=== PATIENT | female | born 1940 | race Caucasian/White ===

== ENCOUNTER → 2016-06-10 | Outpatient (CLI) | payer OTHER, BC ==
[~2016-06-10] MED LIST: ACETAMINOPHEN-1 EAC1 PO; ADVIL200 M3 PO; ALLEGRA ALLERG180 MG PO; AUGMENTIN 875-1 EACH PO; CALCIUM 500 +1 EAC5 PO; DYMISTA NASAL S23 GM NS; HYDROCODON-ACE1 EAC7 PO; KEFLEX500 MG PO; MEDROLDOSEPACK PO; MIRALAX17 GM PO; MULTIVITAMINS1 EAC7 PO; NAPROSYN375 MG PO; TESSALON PERLE100 MG PO; VERAPAMIL ER180 M1 PO; VITAMIN C500 M1 PO; ZINC50 M1 PO
== END ==
LOC: RAD 11:06
DX: R05 Cough (principal)

== ENCOUNTER → 2016-10-06 | Outpatient (CLI) | payer OTHER, BC | LOC: RAD 02:14 | DX: Z12.31 Encounter for screening mammogram for malignant neoplasm of breast (principal) ==

== ENCOUNTER → 2017-02-04 | Outpatient (CLI) | payer OTHER, BC | LOC: RAD 10:08 | DX: R06.00 Dyspnea, unspecified (principal) ==

== ENCOUNTER → 2017-05-05 | Outpatient (CLI) | payer OTHER, BC | LOC: RAD 14:04 | DX: R05 Cough (principal); R06.00 Dyspnea, unspecified ==

== ENCOUNTER 2017-05-10 06:46 | Inpatient (IN) | payer OTHER, BC ==
[~2017-05-10] VITALS: Ht 157.5 cm; Wt 49.4 kg
--- NOTE | ~2017-05-10 | CNG ---
[facility] [place] [address] CYTO-NONGYN REPORT PROCEDURE Name: TALA MAS Room #: 349-I ADM IN M.R.#: [id number] Admission: 05/10/17 Date of : 44 Discharge: Report #: [id number] Path Case #: [id number] CYTOPATHOLOGY REPORT COLLECTION DATE: 05/10/2017 RECEIVED DATE: 05/11/2017 SUBMITTING PHYS: Dr. Adriel Schmitt OTHER PHYS: Dr. Adriel Schmitt CLINICAL HISTORY: Acute respiratory failure SPECIMEN(S) RECEIVED: A.Sputum Cytology * * * * * * * * * * * * FINAL DIAGNOSIS: A. Sputum Cytology: NO ALVEOLAR MACROPHAGES PRESENT. - Superficial specimen/ oral specimen with numerous reactive squamous epithelial cells and bacteria only. PATHOLOGIST: Jolene Villeda M.D. REPORT ELECTRONICALLY SIGNED BY: Jolene Villeda M.D. DATE/TIME: 05/12/2017 14:26 * * * * * * * * * * * * GROSS PATHOLOGY: A. Sputum Cytology: The specimen is submitted unfixed, labeled "Tala Mas". Received by the Cytology Department is five mL of cloudy white fluid. One ThinPrep slide was prepared. (lg.) RUFFLING HEMMER AUTOMATIC(S): TIMI Umanzor(ASCP) INITIAL CPT CODE(S): A; 57726 Professional services performed by [facility] at [facility] [address], [place] [address] Technical services performed by [facility] at [address] [place] [address]., [address], [place] [address]. [facility] [address] [place] [address], [facility] [address] [place] [address] [facility] [address] [place] [address] CYTO-NONGYN REPORT PROCEDURE Name: TALA MAS Room #: 349-I ADM IN M.R.#: [id number] Admission: 05/10/17 Date of : 44 Discharge: Report #: [id number] Path Case #: [id number] PHONE: [phone] DIRECTOR: Jean Carlos Brooks M.D. * * * END OF REPORT * * *
--- NOTE | ~2017-05-10 | HC ---
[facility] [place] [address] CONSULTATION Name: BHANU MAS Room #: 349-I ADM IN M.R.#: [id number] Admission: 05/10/17 Attend Phys: Adriel Schmitt MD Discharge: Date of : 44 Report #: [id number] THIS REPORT FOR: //name// CC: Adriel Schmitt ADMITTING PHYSICIAN: Dr. Jed Schmitt. REASON FOR CONSULTATION: Evaluate pneumonia. 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 In the remote past, she has had sinus surgery. Over the last month, she has had issues with sinus congestion, postnasal drip and intermittent cough. Treated with oral antibiotics without improvement. She was seen several weeks ago by Dr. Vlad Elmore who stated that her sinus ostomies were open and treated her with nasal sprays and antibiotics. She then saw Dr. Schmitt because she was having more cough symptoms along with purulent sputum production. Again, was placed on antibiotic, which she does not know the name. Did not improve with this and is now hospitalized with more cough, lower anterior chest pain. Low grade fever, purulent sputum production. Intermittent nausea and vomiting. No significant travel. She does live with her other sisters in her house; also has been around a 2-year-old staying with them who has had a respiratory tract infection. No HIV risk factors. One prior pneumonia. IMMUNIZATIONS: Up-to-date for influenza and pneumonia vaccine. She has had sinus surgery in the remote past. PAST MEDICAL HISTORY: Asthma, recurring bronchitis, chronic sinusitis, previous sinus surgery, vocal cord nodules, rectal prolapse, left shoulder surgery, hypertension. ALLERGIES: SULFA and QUINAPRIL. MEDICATIONS: As noted on her MAR including vitamin C, zinc, multivitamin, dynamist nasal spray, Motrin, Tessalon Perles, verapamil. FAMILY HISTORY: Noncontributory. SOCIAL HISTORY: No significant alcohol intake and a nonsmoker. REVIEW OF SYSTEMS: Noted above with no diarrhea, abdominal pain, dysuria or frequency. PHYSICAL EXAMINATION: VITAL SIGNS: Afebrile, hemodynamically stable. She is on 2 liters [place] [address] CONSULTATION Name: BHANU MAS Room #: 349-I [facility] IN .R.#: [id number] Admission: 05/10/17 Attend Phys: Adriel Schmitt MD Discharge: Date of : 42 Report #: [id number] HEENT: Sinus congestion. MOUTH: Unremarkable. NECK: Supple, no adenopathy. LUNGS: Few crackles in the left base posteriorly. HEART: Regular, without murmur. ABDOMEN: Soft, nontender, no hepatosplenomegaly or mass. EXTREMITIES: Unremarkable. NEUROLOGIC: Normal. LABORATORY STUDIES: On 2 liters of oxygen, pO2 of 96, pCO2 32, pH 7.47. Hemoglobin 14.2, platelet count 218,000, white count 9.2. Sodium 140, potassium 4, bicarbonate 27, creatinine 0.9. Liver function test normal. Blood cultures are pending. Chest x-ray, left lower lobe infiltrate. IMPRESSION: A 76-year-old with underlying asthma, chronic sinus disease, presents now with community-acquired pneumonia, having failed outpatient antibiotic therapy. RECOMMENDATION: We will treat with levaquin. Screen for MRSA, legionella and strep pneumo. Add codeine for her cough and discomfort. Continue with breathing treatments. <ELECTRONICALLY SIGNED> By: Wily Grigsby MD 05/11/17 0816 1014 1233 Wily Grigsby MD /nt
--- NOTE | ~2017-05-10 | EKG ---
[address] [address] ELECTROCARDIOGRAM REPORT Name: CHACEBHANU TERRELL Room #: 349-I ADM IN M.R.#: [id number] Admission: 05/10/17 Attend Phys: Adriel Schmitt MD Discharge: Date of : 42 Report #: [id number] THIS REPORT FOR: //name// [facility] Test Date: 2017-05-10 Test Time: 08:42:09 Pat Name: BHANU MAS Department: Room: 349 Gender: F Electrical Instrument Technician: Luke AMAYA : 1940 Requested By: Adriel Schmitt Order Number: [id number] MD: Jesus Cuellar Measurements Intervals [place] Rate: 65 P: 50 AR: 155 QRS: 1 QRSD: 92 T: 32 QT: 424 QTc: 441 Interpretive Statements Sinus rhythm Compared to ECG 09/08/2013 07:41:49 No significant changes Electronically Signed On 05-10-2017 16:31:32 INSPECTOR AND HAND PACKAGER by Jesus Cuellar [email or web address] <ELECTRONICALLY SIGNED> By: Jesus Cuellar MD 05/10/17 1631 1 1 Jesus Cuellar MD /RAQUEL
[2017-05-10 08:02] VITALS: BP 106/63
[2017-05-10 08:30] LABS: BE(vivo) 0.5 mmol/L (-2 to +3); HCO3 23.2 mmol/L (22.0-26.0); PO2 96.5 mmHg (80.0-100.0); pH 7.478 (7.360-7.450); sO2 97.8 % (92.0-98.0)
[2017-05-10 09:42] LABS: ABSOLUTE NEUTROPHILS 7.4 thou/uL (1.4-8.2); BASOPHILS 0.9 % (0.0-2.0); EOSINOPHILS 0.3 % (0.0-3.0); HEMATOCRIT 43.4 % (37.0-47.0); HEMOGLOBIN 14.2 gm/dL (12.0-15.0); LYMPHOCYTES 11.4 % (24.0-44.0); MCH 30.1 pg (26.0-34.0); MCHC 32.6 g/dL (28.0-37.0); MCV 92.3 fL (80.0-100.0); MONOCYTES 7.4 % (1.0-8.0); PLATELET COUNT 218 thou/uL (150-400); RDW 13.1 % (10.5-14.5); WBC 9.2 thou/uL (4.0-11.0)
[2017-05-10 09:51] LABS: CREATININE 0.9 mg/dL (0.6-1.0)
[2017-05-10 09:54] LABS: D-DIMER 0.39 ug/mLFEU (0.19-0.50); INR 1.1; PROTIME 11.6 Seconds (9.3-11.4)
[2017-05-10 09:57] LABS: ALBUMIN 3.2 g/dL (3.4-5.0); TOTAL BILIRUBIN 0.3 mg/dL (<0.1-1.0); TOTAL PROTEIN 6.1 g/dL (6.4-8.2)
[2017-05-10 11:38] VITALS: BP 155/88
[2017-05-10 11:52] LABS: URINE BILIRUBIN NEGATIVE (Negative); URINE BLOOD NEGATIVE (Negative); URINE CLARITY CLEAR; URINE COLOR YELLOW; URINE GLUCOSE-RANDOM* NEGATIVE (Negative); URINE KETONES NEGATIVE (Negative); URINE LEUKOCYTES-REFLEX NEGATIVE (Negative); URINE NITRITE-REFLEX NEGATIVE (Negative); URINE PROTEIN (DIPSTICK) NEGATIVE (Negative); URINE SPECIFIC GRAVITY <= 1.005 (1.005-1.035); URINE UROBILINOGEN 0.2 E.U./dl (0.2-1.0)
[2017-05-10] MEDS ORDERED: SINGULAIR 10 MG10 M1 PO (14:33)
[2017-05-10] MEDS ORDERED: FLONASE 0.05%50 MCG NASAL (14:34)
[2017-05-10] MEDS ORDERED: NEXIUM40 MG PO (14:35)
[2017-05-10] MEDS ORDERED: ARNUITY ELLIP100 MCG INH (14:37)
[2017-05-10] MEDS ORDERED: VERAPAMIL HCL120 MG PO (14:38)
[2017-05-10 15:50] VITALS: BP 143/60
[2017-05-10 19:08] VITALS: BP 134/67
[2017-05-10 21:07] LABS: IgA 87 mg/dL (64-422); IgG 554 mg/dL (700-1600); IgM 56 mg/dL (26-217)
[2017-05-11 04:00] VITALS: BP 161/83
[2017-05-11 08:09] VITALS: BP 133/61
[2017-05-11 13:03] VITALS: BP 124/54
[2017-05-11 14:56] VITALS: BP 123/66
[2017-05-11 19:10] VITALS: BP 140/65
[2017-05-12] VITALS (7 sets, daily range): BP systolic 130–154; BP diastolic 59–85
[2017-05-12 23:13] LABS: ADENOVIRUS Negative (Negative); INFLUENZA A Negative (Negative); INFLUENZA B Negative (Negative); METAPNEUMOVIRUS Negative (Negative); PARAINFLUENZA 1 Negative (Negative); PARAINFLUENZA 2 Negative (Negative); PARAINFLUENZA 3 Negative (Negative); RHINOVIRUS Negative (Negative); RSV A Positive (Negative); RSV B Negative (Negative)
[2017-05-13 04:10] VITALS: BP 140/71
[2017-05-13 11:51] VITALS: BP 137/97
[2017-05-13 15:42] VITALS: BP 149/72
[2017-05-13 19:12] VITALS: BP 141/76
[2017-05-14 03:30] VITALS: BP 135/80
[2017-05-14 07:08] VITALS: BP 168/67
[2017-05-14 11:08] VITALS: BP 168/67
[2017-05-14 11:25] VITALS: BP 132/75
[2017-05-14] MEDS ORDERED: PREDNISONE 10 M10 MG PO (12:28)
[2017-05-14] MEDS ORDERED: CEPACOL SORE T1 EAC8 PO (12:28)
[2017-05-14] MEDS ORDERED: BENZONATATE100 MG PO (12:28)
[2017-05-14] MEDS ORDERED: LEVALBUTER0.63 MG/3 INH (12:28)
[2017-05-14] MEDS ORDERED: LEVAQUIN 500 M500 M2 PO (12:28)
== END 2017-05-14 15:01 | disposition home health service (06) | DRG 195 ==
LOC: 3W 06:46 → ENTRNSPT 05-14 14:45 → EDTRNSPTSTS 05-14 14:48 → 3W 05-14 15:01
PROVIDERS: Internal Medicine Pulmonary Disease
DX: J18.9 Pneumonia, unspecified organism (principal); J45.909 Unspecified asthma, uncomplicated; I10 Essential (primary) hypertension; K59.00 Constipation, unspecified; J32.9 Chronic sinusitis, unspecified; B97.4 Respiratory syncytial virus as the cause of diseases classified elsewhere; J01.90 Acute sinusitis, unspecified; Z88.2 Allergy status to sulfonamides; Z88.8 Allergy status to other drugs, medicaments and biological substances; R06.03 Acute respiratory distress
CPT/HCPCS: 10779

== ENCOUNTER → 2017-07-01 | Outpatient (CLI) | payer OTHER, BC ==
[~2017-07-01] MED LIST changes: +ARNUITY ELLIP100 MCG INH; +BENZONATATE100 MG PO; +CEFDINIR300 MG PO; +CEPACOL SORE T1 EAC8 PO; +COLACE 100 MG100 MG PO; +ENOXAPARIN40 MG/0.1 SUBQ; +FLONASE 0.05%50 MCG NASAL; +HYDROCODONE-CH473 M1 PO; +LEVALBUTER0.63 MG/3 INH; +LEVAQUIN 500 M500 M2 PO; +MUCINEX600 MG PO; +NETIPOT IRRIG; +NEXIUM40 MG PO; +OSELB75 PO; +PREDNISONE 10 M10 MG PO; +SINGULAIR 10 MG10 M1 PO; +VERAPAMIL HCL120 MG PO
== END ==
LOC: RAD 14:24
DX: R06.02 Shortness of breath (principal); R05 Cough

== ENCOUNTER 2017-07-29 09:40 | Inpatient (IN) | payer OTHER, BC ==
[~2017-07-29] VITALS: Ht 152.4 cm; Wt 51.8 kg
--- NOTE | ~2017-07-29 | CNG ---
[facility] [place] [address] CYTO-NONGYN REPORT PROCEDURE Name: TALA MAS Room #: 426-P ADM IN M.R.#: [id number] Admission: 07/29/17 Date of : 44 Discharge: Report #: [id number] Path Case #: [id number] CYTOPATHOLOGY REPORT COLLECTION DATE: 07/30/2017 RECEIVED DATE: 07/30/2017 SUBMITTING PHYS: Dr. Adriel Schmitt OTHER PHYS: CLINICAL HISTORY: Pneumonia SPECIMEN(S) RECEIVED: A.Sputum * * * * * * * * * * * * FINAL DIAGNOSIS: A. Sputum: - No malignant epithelial cells identified. -Alveolar macrophages, squamous epithelial cells and abundant bacteria identified. -Properly controlled AFB stain (ThinPrep slide part A) is negative. PATHOLOGIST: Michelle Moon M.D. REPORT ELECTRONICALLY SIGNED BY: Michelle Moon M.D. DATE/TIME: 08/02/2017 11:38 * * * * * * * * * * * * GROSS PATHOLOGY: A. Sputum: The specimen is submitted unfixed, labeled "Adolph Masrielle Bea". Received by the Cytology Department is four mL of cloudy colorless fluid. One ThinPrep slide for pap stain and one ThinPrep for AFB stain were prepared. (mm 07.30.2017) COMFORT STATION SUPERVISOR(S): TIMI Tang([facility]) INITIAL CPT CODE(S): A; 48032, 98954 Professional services performed by [facility] at [facility] [address], [place] [address] Technical services performed by [facility] at [address] [place] [address]., [address], [place] [address]. [facility] [address] [place] [address], [address] [place] [address] [facility] [address] [place] [address] CYTO-NONGYN REPORT PROCEDURE Name: TALA MAS Room #: 426-P ADM IN M.R.#: [id number] Admission: 07/29/17 Date of : 44 Discharge: Report #: [id number] Path Case #: [id number] PHONE: [phone] DIRECTOR: Jean Carlos Brooks M.D. * * * END OF REPORT * * *
--- NOTE | ~2017-07-29 | H ---
[facility] [place] [address] HISTORY AND PHYSICAL Name: BHANU MAS Room #: 426-P ADM IN M.R.#: [id number] Admission: 07/29/17 Attend Phys: Adriel Schmitt MD Discharge: Date of : 42 Report #: [id number] THIS REPORT FOR: //name// CC: Adriel Schmitt DATE OF SERVICE: 07/29/2017 IMPRESSION: 1. Recurrent cough, sputum production, fever, chills and sweats. We will need to evaluate for influenza. 2. Fatigue. 3. Progressive dyspnea on exertion. 4. Reactive airways disease. PLAN: CBC, CMP, C-reactive protein, EKG, echo, D-dimer. We will ask ID to see. We will continue aerosol therapy. We will monitor closely. HISTORY OF PRESENT ILLNESS: This is a very pleasant 77-year-old female with history of hypertension, sinusitis in the past, treated for RSV sinusitis in May, has not made a full recovery and worsened with night sweats, cough, progressive shortness of breath. ALLERGIES: SULFA AND QUINAPRIL. PAST SURGICAL HISTORY: Includes wisdom tooth extraction, tonsillectomy, adenoidectomy and sinus surgery. SOCIAL HISTORY: Negative tobacco. Occasional ETOH, negative drugs of abuse. 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 FAMILY HISTORY: Noncontributory. REVIEW OF SYSTEMS: Chills, decreased appetite, progressive shortness of breath, head congestion, no definite chest pain, no palpitation, no nausea or vomiting, but decreased appetite and fatigue. PHYSICAL EXAMINATION: VITAL SIGNS: Temperature 97.6, pulse 76, respirations 18, BP 137/71. EYES: Negative icterus. NECK: Trachea midline. LUNGS: Showed decreased breath sounds, coarse. HEART: Regular, without murmur. [facility] [place] [place] [address] [place] [address] HISTORY AND PHYSICAL Name: MARV MASTIANA Rizzo Room #: 426-P [facility] IN [facility]#: [id number] Admission: 07/29/17 Attend Phys: Adriel Schmitt MD Discharge: Date of : 42 Report #: [id number] ABDOMEN: Bowel sounds present. NEUROLOGIC: Alert, oriented, appears fatigued. <ELECTRONICALLY SIGNED> By: Adriel Schmitt MD 08/05/17 194 192 44 Adriel Schmitt MD /nt
--- NOTE | ~2017-07-29 | HC ---
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 She is diagnosed with pneumonia, left lower lobe as well as asthma with exacerbation, and pulmonary hypertension. She is on nasal prong O2. She is on IV ceftriaxone and has close involvement by Pulmonary Medicine and Infectious Disease. We are seeing her in rehabilitation medicine consultation. PAST MEDICAL HISTORY: [place] tooth extraction, tonsillectomy, adenoidectomy, and sinus surgery. HABITS: No history of tobacco or alcohol abuse. MEDICATIONS: Please see the full medication listing. FAMILY HISTORY: Noncontributory. 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 Couple steps in with 12 inside. She did not utilize gait aids premorbidly and was not on any oxygen. REVIEW OF SYSTEMS: She does have complaints of continuing cough, some headache and malaise, and shortness of breath with activity. She still has some chilling including last night. No complaints of abdominal pain. No focal extremity pain complaints. PHYSICAL EXAMINATION: GENERAL: Small statured, thin 77-year-old white female kept intermittent coughing. She looks miserable. VITAL SIGNS: Temperature is 97.8, pulse 74, respirations 18, blood pressure 119/74. Facies appeared symmetric. She is on nasal prong O2. NEUROLOGIC: Functional range of motion of both upper extremities. Strength is grade 4- to 3+/5. DTRs are trace to 1. Lower extremities, no focal calf swelling, functional range of motion with strength grade 4-/5. DTRs are trace to 1. She has been standby assistance with basic sit to stand. Gait is min assist up ambulating without gait aids. She did have one loss of balance, requiring min assist. ASSESSMENT: A 77-year-old white female with the following problems: 1. Pulmonary rehabilitation. [address] [address] CONSULTATION Name: BHANU MAS Room #: 426-P [facility] IN [facility]#: [id number] Admission: 07/29/17 Attend Phys: Adriel Schmitt MD Discharge: 08/06/17 Date of : 42 Report #: [id number] 2. Medical complexity with generalized debilitation. 3. Left lower lobe pneumonia. 4. Pulmonary hypertension. 5. Asthma with exacerbation. 6. Influenza B plus. 7. Functional mobility and activities of daily living deficits. PLAN: Occupational therapy to evaluate. We are assessing her for a potential short acute in-hospital inpatient rehabilitation stay. We will be glad to follow along with you. <ELECTRONICALLY SIGNED> By: Bg Lundberg MD 08/10/17 0857 0816 1743 Bg Lundberg MD /[facility]
--- NOTE | ~2017-07-29 | D ---
[facility] [place] [address] DISCHARGE SUMMARY Name: BHANU MAS Room #: 426-P [facility] IN M.R.#: [id number] Admission: 07/29/17 Attend Phys: Adriel Schmitt MD Discharge: 08/06/17 Date of : 42 Report #: [id number] THIS REPORT FOR: //name// CC: Adriel Schmitt DATE OF SERVICE: 09/23/2017 FINAL DIAGNOSES: Influenza B, exacerbation of asthma, secondary bacterial pneumonia, left lower lobe, pulmonary hypertension. PLAN: The patient will be transferred to [address] [place] [address] on cefdinir, Tamiflu, Colace, Lovenox, Tessalon, levalbuterol. Followup echo as outpatient. HISTORY OF PRESENT ILLNESS: A very pleasant 77-year-old female was in hospital with RSV pneumonia and sinusitis, comes back in now with progressive cough, shortness of breath, found to have influenza B. CT PE protocol done showed no pulmonary embolus, dilation of the main pulmonary artery not seen. She slowly improved during the stay. Cough was debilitating. Creatinine was stable the whole time. LABORATORY DATA: White count also was on the low side, however, normalized. Echo did show PA systolic of 70. Trace to mild tricuspid regurg, trace to mild mitral regurg, aortic valve sclerotic, EF 55-60%. <ELECTRONICALLY SIGNED> By: Adriel Schmitt MD 10/08/171947 27 222 Adriel Schmitt MD /nt
--- NOTE | ~2017-07-29 | EKG ---
[address] [address] ELECTROCARDIOGRAM REPORT Name: BHANU MAS Room #: 426- ADM IN M.R.#: [id number] Admission: 07/29/17 Attend Phys: Adriel Schmitt MD Discharge: Date of : 42 Report #: [id number] THIS REPORT FOR: //name// [facility] Test Date: 2017-07-30 Test Time: 06:35:49 Pat Name: BHANU MAS Department: Room: 426 Gender: F Health Data Analyst: TANO : 1940 Requested By: Adriel Schmitt Order Number: [id number] MD: Rocky Pace Measurements Intervals [place] Rate: 72 P: 82 TN: 154 QRS: 10 QRSD: 94 T: 45 QT: 433 QTc: 474 Interpretive Statements Sinus rhythm Low voltage, precordial leads Compared to ECG 05/10/2017 08:42:09 No significant change was found Electronically Signed On 07-30-2017 8:40:08 KILN SETTER by Rocky Pace [email or web address] <ELECTRONICALLY SIGNED> By: Rocky Pace MD, [facility] 07/30/17 0840 4 4 Rocky Pace MD, [facility] /EPI
--- NOTE | ~2017-07-29 | S ---
[facility] [place] [address] SURGICAL PATH RPT PROCEDURE Name: TALA MAS Room #: 426-P ADM IN M.R.#: [id number] Admission: 07/29/17 Date of : 44 Discharge: Report #: [id number] Path Case #: [id number] PATHOLOGY REPORT COLLECTION DATE: 07/29/2017 RECEIVED DATE: 07/30/2017 SUBMITTING PHYS: Dr. Adriel Schmitt OTHER PHYS: SPECIMEN(S) RECEIVED: A.Peripheral smear * * * * * * * * * * * * FINAL DIAGNOSIS: Peripheral blood smear: - Pancytopenia including moderate normocytic anemia, moderate leukopenia and mild thrombocytopenia (see comment). (CLW:[facility]; 08/02/2017) COMMENT: Overall, the peripheral blood has pancytopenia including moderate normocytic anemia, moderate leukopenia, and mild thrombocytopenia. The etiology of the findings is unclear based entirely on slide review. Potential causes of pancytopenia include infections, drug reactions and primary bone marrow disorders. Other causes of normocytic anemia include anemia of chronic disease, treated and/or vitamin and mineral deficiencies, blood loss and dilutional. The leukopenia is a borderline mild neutropenia and mild lymphopenia. Correlation with the clinical history and additional laboratory data is recommended. (CLW:jose david; 08/02/2017) PATHOLOGIST: Michelle Moon M.D. REPORT ELECTRONICALLY SIGNED BY: Michelle Moon M.D. DATE/TIME: 08/02/2017 15:58 * * * * * * * * * * * * MICROSCOPIC DESCRIPTION: CBC Data (07/29/2017): WBC 2,600 /uL, RBC 3.05, hemoglobin 9.6 g/dL, hematocrit 27.3%, MCV 89.7 fL, MCH 31.4 pg, MCHC 35.0 g/dL, RDW 13.4%. Platelet count 136,000 /uL. Manual white blood cell differential: segs 60%, bands 3%, lymphs 25%, monos 10%, eos 1%, and basos 1%. Peripheral Blood Smear: Cytomorphological examination of the Christianson's stained peripheral blood smear confirms the provided data. Red blood cells show moderate normocytic anemia with no significant anisopoikilocytosis. [address] [address] SURGICAL PATH RPT PROCEDURE Name: TALA MAS Room #: 426[facility] IN .R.#: [id number] Admission: 07/29/17 Date of : 44 Discharge: Report #: [id number] Path Case #: [id number] No schistocytes or microspherocytes are seen. White blood cells are moderately decreased in number. They are predominantly segmented neutrophils and are without significant dyspoiesis or significant left shift. Lymphocytes are predominantly small, round, and mature appearing with condensed chromatin and scant cytoplasm with admixed large granular lymphocytes and occasional reactive appearing lymphocytes. Monocytes are mature. Platelets are adequate (mildly decreased) in number and mainly normal in morphology with rare larger platelets noted. (CLW:jose david; 08/02/2017) GROSS PATHOLOGY: Received are two Christianson's stained peripheral blood smears labeled, Tala Mas CLINICAL HISTORY: A 77-year-old woman with pancytopenia. Morphologic review of the peripheral blood smear is requested by the patient's physician. INITIAL CPT CODE(S): A; [place] Professional services performed by [facility] at [facility] [address], [place] [address] Technical services performed by [facility] at [address] [place] [address], [address], [place] [address]. [facility] [address] [place] [address] PHONE: [phone] DIRECTOR: Jean Carlos Brooks M.D. * * * END OF REPORT * * *
--- NOTE | ~2017-07-29 | HC ---
[facility] [place] [address] CONSULTATION Name: BHANU MAS Room #: 426-P ADM IN M.R.#: [id number] Admission: 07/29/17 Attend Phys: Adriel Schmitt MD Discharge: Date of : 42 Report #: [id number] THIS REPORT FOR: //name// CC: Adriel Schmitt REASON FOR CONSULTATION: I was asked to evaluate concerning respiratory tract infection. 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 She has underlying asthma and chronic sinusitis. She has recurrent bronchitis. Over the last 3 days, she has had the onset of fever, chills, night sweats, increased cough, sinus congestion and shortness of breath. She was placed on prednisone yesterday, but had night sweats throughout the night and woke up more short of breath, therefore was hospitalized. No travel outside the [place]. Her housemates have all been sick with respiratory tract infection in various degrees including chronic cough, acute respiratory infection and one with pneumonia. PAST MEDICAL HISTORY: Asthma, recurrent bronchitis, sinusitis, previous sinus surgery, vocal cord nodules, rectal prolapse, left shoulder surgery, and hypertension. ALLERGIES: SULFA and QUINAPRIL. MEDICATIONS: As noted on her AUG, which were reviewed. Now on prednisone. FAMILY HISTORY: Noncontributory. REVIEW OF SYSTEMS: Notes mild sinus congestion, mostly in the frontal region. No headache or change in mental status. No pleuritic chest pain. Sputum has been small, light in color. No hemoptysis. No abdominal pain, nausea, vomiting or diarrhea. No dysuria or frequency. PHYSICAL EXAMINATION: VITAL SIGNS: Afebrile and hemodynamically stable. Vital signs have not been recorded yet. Pulse was regular. GENERAL: She was alert, cooperative and pleasant, appeared fatigued. HEENT: Notes sinus congestion. Mouth unremarkable. SKIN: Unremarkable. No lymphadenopathy. NECK: Supple. LUNGS: Crackles heard in the right base posteriorly. No wheezes or rub. HEART: Regular, without murmur. ABDOMEN: Soft and nontender. No peripheral edema. NEUROLOGIC: Normal. IMPRESSION: A 77-year-old with underlying asthma and chronic bronchitis and [address] [address] CONSULTATION Name: BHANU MAS Room #: 426[facility] IN [facility].#: [id number] Admission: 07/29/17 Attend Phys: Adriel Schmitt MD Discharge: Date of : 42 Report #: [id number] sinusitis, presents with exacerbation of such. I am concerned that she may have developed pneumonia. I am concerned also about influenza. We would recommend broad antibiotic coverage while awaiting further studies. We will include antibiotics and Tamiflu. We will screen with chest x-ray, sputum culture, urine antigens, viral respiratory panel and continue full support. Pulmonary medicine will see and adjust her steroids for her asthma. <ELECTRONICALLY SIGNED> By: Wily Grigsby MD 07/30/17 1211 1232 1810 Wily Grigsby MD /nt
--- NOTE | ~2017-07-29 | 2DMMODE ---
[facility] [address] [facility] [place] [address] 2 D/M-MODE ECHOCARDIOGRAM Name: CHACE,SISTER BHANU TERRELL Room #: 426-P ADM IN M.R.#: [id number] Admission: 07/29/17 Attend Phys: So Rush Discharge: Date of : 44 Date of Service: 07/29/17 1312 Report #: [id number] THIS REPORT FOR: //name// APPROVED REPORT Study performed: 07/29/2017 11:43:21 EXAM: Comprehensive 2D, Doppler, and color-flow Echocardiogram Patient Location: Bedside Room #: 426 Status: routine BSA: 1.47 BP: 116/65 mmHg Rhythm: NSR Other Information Study Quality: Adequate Indications Dyspnea 2D Dimensions RVDd: 32.87 mm LVEF(%): 66.79 (>50%) IVSd: 7.89 (7-11mm) LVOT Diam: 19.56 (18-24mm) LVDd: 41.03 mm PWd: 7.39 (7-11mm) Ascending Ao: 33.41 (22-36mm) LVDs: 26.04 (25-40mm) Aortic Root: 32.23 mm IVC: 13.00 mm Madrigal's LVEF: 66.79 % Volumes Left Atrial Volume (Systole) Single Plane 4CH: 27.32 mL Single Plane 2CH: 24.75 mL LA ESV Index: 20.00 mL/m2 Aortic Valve AoV Peak Vitaliy.: 1.11 m/s AO Peak Gr.: 4.90 mmHg LVOT Max P.54 mmHg LVOT Max V: 0.80 m/s MARYLOU Vmax: 2.16 cm2 Mitral Valve E/A Ratio: 1.1 MV Decel. Time: 236.47 ms [facility] [email or web address] [address] 2 D/M-MODE ECHOCARDIOGRAM Name: CHACE,SISTER BHANU TERRELL Room #: 426-P [facility] IN M.R.#: [id number] Admission: 07/29/17 Attend Phys: So Rush Discharge: Date of : 44 Date of Service: 07/29/17 1312 Report #: [id number] E Max Vitaliy.: 0.92 m/s MV A Vitaliy.: 0.87 m/s MV PHT: 68.58 ms IVRT: 83.04 ms Pulmonary Valve PV Peak Vitaliy.: 0.91 m/s PV Peak Gr.: 3.33 mmHg Pulmonary Vein P Vein S: 0.52 m/s P Vein A: 0.31 m/s P Vein D: 0.37 m/s P Vein A Dur.: 129.2 msec P Vein S/D Ratio: 1.41 Tricuspid Valve TR Peak Vitaliy.: 4.13 m/s RAP Estimate: 5.00 mmHg TR Peak Gr.: 68.36 mmHg PA Pressure: 73.00 mmHg Left Ventricle The left ventricle is normal size. There is normal LV segmental wall motion. There is normal left ventricular wall thickness. The left ventricular systolic function is normal. The left ventricular ejection fraction is within the normal range. LVEF is 55-60%. Right Ventricle The right ventricle is normal size. The right ventricular systolic function is normal. Atria The left atrium size is normal. The right atrium size is normal. Aortic Valve The aortic valve is sclerotic, trileaflet. No aortic regurgitation is present. There is no aortic valvular stenosis. Mitral Valve The mitral valve is normal in structure. Trace to mild mitral regurgitation. No evidence of mitral valve stenosis. Tricuspid Valve The tricuspid valve is normal in structure. Trace to mild tricuspid regurgitation. Estimated PAP 70 mmHg. Pulmonic Valve The pulmonary valve is normal in structure. [place] [address] 2 D/M-MODE ECHOCARDIOGRAM Name: CHACE,SISTER BHANU TERRELL Room #: 426-P [facility] IN ..#: [id number] Admission: 07/29/17 Attend Phys: So Rush Discharge: Date of : 44 Date of Service: 07/29/17 1312 Report #: [id number] valvular regurgitation. Great Vessels The aortic root is normal in size. The ascending aorta is normal in size. IVC is normal in size and collapses >50% with inspiration. Pericardium There is no pericardial effusion. <Conclusion> The left ventricular systolic function is normal. There is normal LV segmental wall motion. LVEF 55-60%. The aortic valve is sclerotic, trileaflet. No aortic regurgitation or stenosis The mitral valve is normal in structure. Trace to mild mitral regurgitation. Trace to mild tricuspid regurgitation. Estimated pulmonary artery pressure of 70 mmHg. There is no pericardial effusion. <ELECTRONICALLY SIGNED> By: Rocky Pace MD, FACC 07/29/17 131 11 11 Rocky Pace MD, FACC /INF
[~2017-07-29 09:40] MED LIST changes: -CEFDINIR300 MG PO; -COLACE 100 MG100 MG PO; -ENOXAPARIN40 MG/0.1 SUBQ; -HYDROCODONE-CH473 M1 PO; -MUCINEX600 MG PO; -NETIPOT IRRIG; -OSELB75 PO
[2017-07-29 15:30] VITALS: BP 133/87
[2017-07-29 15:40] VITALS: BP 142/64
[2017-07-29 16:36] LABS: HEMATOCRIT 27.3 % (37.0-47.0); HEMOGLOBIN 9.6 gm/dL (12.0-15.0); MCH 31.4 pg (26.0-34.0); MCV 89.7 fL (80.0-100.0); PLATELET COUNT 136 thou/uL (150-400); RBC 3.05 mil/uL (4.20-5.00); RDW 13.4 % (10.5-14.5); WBC 2.6 thou/uL (4.0-11.0)
[2017-07-29 17:09] LABS: ABSOLUTE NEUTROPHILS 1.6 thou/uL (1.4-8.2)
[2017-07-29 19:00] VITALS: BP 137/71
[2017-07-29 19:08] LABS: CRP HIGHLY SENSITIVE 14.01 mg/L (0.00-3.00); IgA 79 mg/dL (64-422); IgG 476 mg/dL (700-1600); IgM 53 mg/dL (26-217)
[2017-07-29 19:15] LABS: ALBUMIN 2.7 g/dL (3.4-5.0); CALCIUM 7.7 mg/dL (8.5-10.1); TOTAL BILIRUBIN 0.3 mg/dL (<0.1-1.0); TOTAL PROTEIN 5.4 g/dL (6.4-8.2)
[2017-07-29 19:21] LABS: POTASSIUM 2.9 mmol/L (3.5-5.1)
[2017-07-29 21:09] LABS: CORTISOL RANDOM 8.6 ug/dL (())
[2017-07-29 21:21] LABS: URINE BILIRUBIN NEGATIVE (Negative); URINE BLOOD NEGATIVE (Negative); URINE CLARITY CLEAR; URINE COLOR YELLOW; URINE GLUCOSE-RANDOM* NEGATIVE (Negative); URINE KETONES NEGATIVE (Negative); URINE LEUKOCYTES NEGATIVE (Negative); URINE NITRITE NEGATIVE (Negative); URINE PROTEIN (DIPSTICK) NEGATIVE (Negative); URINE SPECIFIC GRAVITY <= 1.005 (1.005-1.035); URINE UROBILINOGEN 0.2 E.U./dl (0.2-1.0)
[2017-07-30 05:25] VITALS: BP 100/81
[2017-07-30 05:31] LABS: HEMATOCRIT 33.6 % (37.0-47.0); HEMOGLOBIN 11.4 gm/dL (12.0-15.0); MCH 31.1 pg (26.0-34.0); MCV 91.5 fL (80.0-100.0); PLATELET COUNT 185 thou/uL (150-400); RBC 3.67 mil/uL (4.20-5.00); RDW 13.9 % (10.5-14.5); WBC 2.7 thou/uL (4.0-11.0)
[2017-07-30 05:44] LABS: ANION GAP 5 mmol/L (7-16); BUN 10 mg/dL (7-18); CALCIUM 7.8 mg/dL (8.5-10.1); CHLORIDE 107 mmol/L (98-107); CO2 29 mmol/L (21-32); CREATININE 0.9 mg/dL (0.6-1.0); GLUCOSE 104 mg/dL (74-106); POTASSIUM 3.4 mmol/L (3.5-5.1); SODIUM 141 mmol/L (136-145); TROPONIN-I < 0.04 ng/mL (<0.06)
[2017-07-30 07:06] VITALS: BP 113/76
[2017-07-30 07:35] LABS: OVALOCYTES FEW; POLYCHROMASIA SLIGHT
[2017-07-30 10:00] LABS: BE(vivo) -4.4 mmol/L (-2 to +3); HCO3 19.1 mmol/L (22.0-26.0); PCO2 30.9 mmHg (35.0-45.0); sO2 97.4 % (92.0-98.0)
[2017-07-30 15:08] LABS: GLYCOHEMOGLOBIN (HGB A1C) 5.2 % (4.8-5.6)
[2017-07-30 15:40] VITALS: BP 157/73
[2017-07-30 19:10] VITALS: BP 131/76
[2017-07-30 23:07] LABS: CORTISOL 30 MIN 13.3 ug/dL (Not Estab.); CORTISOL 60 MIN 19.5 ug/dL (Not Estab.); CORTISOL BASELINE 3.9 ug/dL (())
[2017-07-31 00:34] VITALS: BP 131/76
[2017-07-31 04:08] VITALS: BP 150/78
[2017-07-31 04:28] LABS: HEMATOCRIT 33.6 % (37.0-47.0); HEMOGLOBIN 11.4 gm/dL (12.0-15.0); MCH 31.4 pg (26.0-34.0); MCHC 34.1 g/dL (28.0-37.0); MCV 91.9 fL (80.0-100.0); RBC 3.65 mil/uL (4.20-5.00); RDW 13.9 % (10.5-14.5); WBC 2.5 thou/uL (4.0-11.0)
[2017-07-31 04:42] LABS: CALCIUM 7.7 mg/dL (8.5-10.1); CREATININE 0.6 mg/dL (0.6-1.0); MAGNESIUM 2.3 mg/dL (1.8-2.4); POTASSIUM 3.6 mmol/L (3.5-5.1)
[2017-07-31 07:30] VITALS: BP 157/86
[2017-07-31 11:54] VITALS: BP 134/82
[2017-07-31 15:30] VITALS: BP 11/58
[2017-07-31 16:11] LABS: COMPLEMENT-C3 89 mg/dL (82-167); COMPLEMENT-C4 3 mg/dL (14-44)
[2017-07-31 20:30] VITALS: BP 144/80
[2017-08-01 03:47] VITALS: BP 142/78
[2017-08-01 04:45] LABS: HEMATOCRIT 32.8 % (37.0-47.0); HEMOGLOBIN 11.2 gm/dL (12.0-15.0); MCH 31.1 pg (26.0-34.0); MCHC 34.1 g/dL (28.0-37.0); MCV 91.2 fL (80.0-100.0); RBC 3.59 mil/uL (4.20-5.00); RDW 13.7 % (10.5-14.5); WBC 3.8 thou/uL (4.0-11.0)
[2017-08-01 05:07] LABS: CALCIUM 8.1 mg/dL (8.5-10.1); CREATININE 0.8 mg/dL (0.6-1.0); POTASSIUM 3.7 mmol/L (3.5-5.1)
[2017-08-01 07:00] VITALS: BP 139/77
[2017-08-01 08:45] VITALS: BP 139/77
[2017-08-01 11:54] VITALS: BP 123/70
[2017-08-01 20:00] VITALS: BP 135/78
[2017-08-02 04:00] VITALS: BP 148/79
[2017-08-02 08:30] VITALS: BP 158/70
[2017-08-02 09:24] VITALS: BP 158/70
[2017-08-02 15:09] LABS: ANA INTERPRETATION Positive (Negative)
[2017-08-02 16:08] VITALS: BP 178/70
[2017-08-02 20:00] VITALS: BP 138/63
[2017-08-02 23:07] LABS: ADENOVIRUS Negative (Negative); INFLUENZA A Negative (Negative); INFLUENZA B Positive (Negative); METAPNEUMOVIRUS Negative (Negative); PARAINFLUENZA 1 Negative (Negative); PARAINFLUENZA 2 Negative (Negative); PARAINFLUENZA 3 Negative (Negative); RHINOVIRUS Negative (Negative); RSV A Negative (Negative); RSV B Negative (Negative)
[2017-08-03 03:45] LABS: BE(vivo) 0.6 mmol/L (-2 to +3); HCO3 24.1 mmol/L (22.0-26.0); PCO2 34.9 mmHg (35.0-45.0); pH 7.457 (7.360-7.450); sO2 92.7 % (92.0-98.0)
[2017-08-03 07:00] VITALS: BP 119/70
[2017-08-03 09:14] LABS: BE(vivo) 3.1 mmol/L (-2 to +3); PCO2 38.7 mmHg (35.0-45.0); PO2 93.8 mmHg (80.0-100.0); pH 7.461 (7.360-7.450); sO2 97.5 % (92.0-98.0)
[2017-08-03 09:38] LABS: HEMATOCRIT 35.6 % (37.0-47.0); MCH 30.7 pg (26.0-34.0); MCHC 33.7 g/dL (28.0-37.0); RBC 3.91 mil/uL (4.20-5.00); RDW 13.7 % (10.5-14.5)
[2017-08-03 09:46] LABS: CALCIUM 8.8 mg/dL (8.5-10.1); CREATININE 0.7 mg/dL (0.6-1.0); POTASSIUM 3.9 mmol/L (3.5-5.1)
[2017-08-03 16:10] VITALS: BP 135/74
[2017-08-03 21:30] VITALS: BP 153/71
[2017-08-04 04:23] VITALS: BP 137/67
[2017-08-04 08:12] VITALS: BP 131/70
[2017-08-04 20:00] VITALS: BP 137/78
[2017-08-05 07:00] VITALS: BP 119/74
[2017-08-05 15:30] VITALS: BP 143/80
[2017-08-05 19:48] VITALS: BP 138/94
[2017-08-05 20:13] VITALS: BP 122/71
[2017-08-06 03:24] VITALS: BP 135/76
[2017-08-06 03:27] VITALS: BP 135/76
[2017-08-06 15:30] VITALS: BP 134/74
[2017-08-06] MEDS ORDERED: CEFDINIR300 MG PO (16:56)
[2017-08-06] MEDS ORDERED: ENOXAPARIN40 MG/0.1 SUBQ (16:56)
[2017-08-06] MEDS ORDERED: LEVALBUTER0.63 MG/3 INH ×2 (16:56)
[2017-08-06] MEDS ORDERED: NETIPOT IRRIG (16:56)
[2017-08-06] MEDS ORDERED: OSELB75 PO (16:56)
[2017-08-06] MEDS ORDERED: MUCINEX600 MG PO (16:56)
[2017-08-06] MEDS ORDERED: COLACE 100 MG100 MG PO (16:57)
[2017-08-06] MEDS ORDERED: TESSALON PERLE100 MG PO (16:57)
[2017-08-06] MEDS ORDERED: HYDROCODONE-CH473 M1 PO (16:57)
== END 2017-08-06 19:30 | DRG 871 ==
LOC: 4E 09:40
PROVIDERS: Internal Medicine Pulmonary Disease
DX: A41.9 Sepsis, unspecified organism (principal); J18.1 Lobar pneumonia, unspecified organism; J45.901 Unspecified asthma with (acute) exacerbation; D61.818 Other pancytopenia; J90 Pleural effusion, not elsewhere classified; I10 Essential (primary) hypertension; J32.9 Chronic sinusitis, unspecified; I27.20 Pulmonary hypertension, unspecified; J10.1 Influenza due to other identified influenza virus with other respiratory manifestations; D69.6 Thrombocytopenia, unspecified; E87.6 Hypokalemia; D75.9 Disease of blood and blood-forming organs, unspecified; Z88.2 Allergy status to sulfonamides; Z88.8 Allergy status to other drugs, medicaments and biological substances
CPT/HCPCS: 10183

== ENCOUNTER 2017-08-06 09:50 | Inpatient (IN) | payer OTHER, BC ==
[~2017-08-06] VITALS: Ht 152.4 cm; Wt 49.3 kg
--- NOTE | ~2017-08-06 | PLAN ---
[place] [address] REHAB UNIT PLAN OF CARE Name: BHANU MAS Room #: 501-A ADM IN .R.#: [id number] Admission: 08/06/17 Attend Phys: Bg Lundberg MD Discharge: Date of : 42 Report #: [id number] THIS REPORT FOR: //name// CC: Adriel Lundberg DATE OF SERVICE: 08/09/2017 The patient is seen back today in followup. She is in no distress. Last recorded temperature is 98, pulse 82, respirations 16, blood pressure 139/74. The patient is alert. HEENT appeared to be benign. Cranial nerves are grossly intact. She still feels weak, but notes that her cough is a bit less. There is no calf swelling. She is on prednisone, Cefdinir, breathing treatments, Xopenex. She is working in therapies with transfers, standby assistance, gait has been 300 feet with a standard cane. She needs to be monitored regarding balance issues and she has been min assist with balance. Recommending use of a single point cane when up in her room. In occupational therapy, supervision for bathing. Toilet transfers are independent. ASSESSMENT: 1. Pulmonary rehabilitation. 2. Medical complexity with generalized debilitation. 3. Left lower lobe pneumonia. 4. Pulmonary hypertension. 5. Asthma with exacerbation. 6. Influenza B+. 7. Functional mobility and ADLs. PLAN: The overall plan of care is based on the preadmission screen, post-admission physician evaluation and information garnered from therapy assessments. 1. Estimated length of stay is probably 5-10 days and she is progressing. 2. Medical prognosis is reasonably good. 3. Anticipated interventions includes the interdisciplinary acute inpatient rehabilitation program with PT and OT, rehab nursing assisting regarding medication management, skin care prophylaxis, bowel and bladder issues and nursing education. Case management is involved as well as the sap payroll consultant physicians with Pulmonary and Infectious Disease. 4. Anticipated functional outcomes would be for the patient to become modified independent with full ambulation and mobility and ADLs, so she can return back to the home setting. Goal would be independent at a cane versus walker level. 5. Discharge destination will be back home where she lives with a group of nuns. 6. Expected therapy by discipline includes PT and OT 1-1/2 hours per day each [address] [address] REHAB UNIT PLAN OF CARE Name: BHANU MAS Room #: 501-A [facility] IN [facility]#: [id number] Admission: 08/06/17 Attend Phys: Bg Lundberg MD Discharge: Date of : 42 Report #: [id number] five days a week throughout the duration of the acute inpatient rehabilitation stay. <ELECTRONICALLY SIGNED> By: Bg Lundberg MD 08/10/17 0857 0800 2150 Bg Lundberg MD /PMT
--- NOTE | ~2017-08-06 | H ---
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 She was diagnosed with pneumonia, left lower lobe as well as asthma with exacerbation and pulmonary hypertension. She was placed on nasal prong O2. She was given IV ceftriaxone and has had close involvement by Pulmonary Medicine and Infectious Disease. She was noted to have a significant decline in her overall functional independence and was admitted now for an acute in-hospital inpatient rehabilitation stay. PAST MEDICAL HISTORY: Malo tooth extraction, tonsillectomy, adenoidectomy, sinus surgery. HABITS: No history of tobacco or alcohol abuse. MEDICATIONS: Please see the full medication listing. Each of these was individually reconciled and includes vitamins, herbals and supplements. FAMILY HISTORY: Noncontributory. 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 There are a couple of steps and with 12 inside. She did not utilize gait aids premorbidly and was not on any oxygen. REVIEW OF SYSTEMS: They have complaints of continuing cough, some headache, malaise and shortness of breath with activity. She has had some chilling at times. No focal extremity pain complaints. PHYSICAL EXAMINATION: GENERAL: Small statured, thin 77-year-old white female with some continued intermittent coughing. It appears somewhat improved from before. VITAL SIGNS: Last recorded temperature is 97.9, pulse 96, respirations 18, blood pressure 142/89. She is alert, pleasant, oriented. HEENT: Appeared to be benign. Facies were symmetric. CHEST: Some decreased breath sounds diffusely throughout with occasional coughing episodes. CARDIOVASCULAR: Regular rate and rhythm. [facility] [address] [place] [address] HISTORY AND PHYSICAL Name: BHANU MAS Room #: 501-A ADM IN [facility].#: [id number] Admission: 08/06/17 Attend Phys: Bg Lundberg MD Discharge: Date of : 42 Report #: [id number] ABDOMEN: Bowel sounds positive, nontender. GENITOURINARY AND RECTAL: Deferred. EXTREMITIES: Functional range of motion of both upper extremities with strength grade 4- to 3+/5. DTRs are trace to 1. Lower extremities, no focal calf swelling, functional range of motion with strength grade 4-/5. DTRs are trace to 1. NEUROLOGIC: She is standby assistance with sit to stand. Gait: She can sit to stand. She did have one loss of balance with further ambulation. She tends to fatigue quickly. ASSESSMENT: A 77-year-old white female with the following problem list: 1. Pulmonary rehabilitation. 2. Medical complexity with generalized debilitation. 3. Left lower lobe pneumonia. 4. Pulmonary hypertension. 5. Asthma with exacerbation. 6. Influenza B plus. 7. Functional mobility and ADL deficits. PLAN: The patient is admitted for acute in-hospital inpatient rehabilitation. From a postadmission physician evaluation perspective, there are no relevant changes since the preadmission screening. Please see the above review of prior and current medical and functional conditions and comorbidities. Please see the patient's previous and current functional status. As far as risk of complications, the patient does have the above noted comorbidities. Initial plan of care involves the interdisciplinary acute inpatient rehabilitation program with the goal of maximizing her functional independence, so she can hopefully return back to her prior living situation. Measurable functional goals would be for her to become modified independent with transfers, mobility and ADLs that she can hopefully return back to her prior living situation. Prognosis is reasonably good with estimated length of stay probably fairly short around 5-10 days. Potential barriers would include her multiple medical comorbidities and decreased functional status. The patient meets diagnostic criteria for an acute in-hospital inpatient rehabilitation stay. She meets medical necessity criteria and we will have her it architecture consultant physicians continue to follow including Internal Medicine as well as Pulmonary Medicine. She does have the tolerance for her rehab therapies and has appropriate discharge goals back to the home setting. <ELECTRONICALLY SIGNED> By: Bg Lundberg MD 08/10/17 0857 1215 1242 Bg Lundberg MD /[facility]
[2017-08-06] MEDS ORDERED: ENOXAPARIN40 MG/0.1 SUBQ (16:56)
[2017-08-06] MEDS ORDERED: OSELB75 PO (16:56)
[2017-08-06] MEDS ORDERED: NETIPOT IRRIG (16:56)
[2017-08-06] MEDS ORDERED: CEFDINIR300 MG PO (16:56)
[2017-08-06] MEDS ORDERED: MUCINEX600 MG PO (16:56)
[2017-08-06] MEDS ORDERED: LEVALBUTER0.63 MG/3 INH ×2 (16:56)
[2017-08-06] MEDS ORDERED: TESSALON PERLE100 MG PO (16:57)
[2017-08-06] MEDS ORDERED: COLACE 100 MG100 MG PO (16:57)
[2017-08-06] MEDS ORDERED: HYDROCODONE-CH473 M1 PO (16:57)
[2017-08-06 19:40] VITALS: BP 142/89
[2017-08-07 03:18] LABS: HEMATOCRIT 34.6 % (37.0-47.0); HEMOGLOBIN 11.5 gm/dL (12.0-15.0); MCH 30.4 pg (26.0-34.0); MCHC 33.4 g/dL (28.0-37.0); MCV 91.1 fL (80.0-100.0); RBC 3.8 mil/uL (4.20-5.00); RDW 13.5 % (10.5-14.5); WBC 4.3 thou/uL (4.0-11.0)
[2017-08-07 03:31] LABS: CALCIUM 8.8 mg/dL (8.5-10.1); CREATININE 0.7 mg/dL (0.6-1.0); POTASSIUM 3.8 mmol/L (3.5-5.1)
[2017-08-07 07:30] VITALS: BP 129/68
[2017-08-07 21:21] VITALS: BP 128/66
[2017-08-08 07:45] VITALS: BP 131/62
[2017-08-08 07:50] VITALS: BP 121/63
[2017-08-08 21:38] VITALS: BP 139/74
[2017-08-09 08:00] VITALS: BP 95/65
[2017-08-09 19:25] VITALS: BP 140/74
[2017-08-10 08:00] VITALS: BP 141/87
[2017-08-10 19:00] VITALS: BP 96/42
[2017-08-11 07:30] VITALS: BP 140/74
[2017-08-11 20:16] VITALS: BP 118/57
[2017-08-12 07:23] LABS: HEMATOCRIT 37.6 % (37.0-47.0); HEMOGLOBIN 12.6 gm/dL (12.0-15.0); MCHC 33.6 g/dL (28.0-37.0); MCV 92.5 fL (80.0-100.0); RBC 4.07 mil/uL (4.20-5.00); RDW 13.9 % (10.5-14.5); WBC 6.8 thou/uL (4.0-11.0)
[2017-08-12 07:43] LABS: CALCIUM 8.9 mg/dL (8.5-10.1); CREATININE 0.9 mg/dL (0.6-1.0); POTASSIUM 3.9 mmol/L (3.5-5.1); TOTAL BILIRUBIN 0.3 mg/dL (<0.1-1.0); TOTAL PROTEIN 5.9 g/dL (6.4-8.2)
[2017-08-12 09:36] VITALS: BP 123/69
[2017-08-12] MEDS ORDERED: PREDNISONE 10 M10 MG PO (11:15)
== END 2017-08-12 12:57 | disposition home health service (06) | DRG 947 ==
LOC: ENTRNSPT 08-12 12:46 → EDTRNSPTSTS 08-12 12:52
PROVIDERS: Internal Medicine Pulmonary Disease; Physical Medicine & Rehabilitation
DX: R53.81 Other malaise (principal); J18.1 Lobar pneumonia, unspecified organism; J45.901 Unspecified asthma with (acute) exacerbation; I27.20 Pulmonary hypertension, unspecified; J11.1 Influenza due to unidentified influenza virus with other respiratory manifestations; I10 Essential (primary) hypertension; Z88.2 Allergy status to sulfonamides; Z88.8 Allergy status to other drugs, medicaments and biological substances
CPT/HCPCS: 10112

== ENCOUNTER → 2017-08-30 | Outpatient (CLI) | payer OTHER, BC ==
[~2017-08-30] MED LIST changes: +CEFDINIR300 MG PO; +COLACE 100 MG100 MG PO; +ENOXAPARIN40 MG/0.1 SUBQ; +HYDROCODONE-CH473 M1 PO; +MUCINEX600 MG PO; +NETIPOT IRRIG; +OSELB75 PO
== END ==
LOC: RAD 09:51
DX: R05 Cough (principal); R06.00 Dyspnea, unspecified; R91.8 Other nonspecific abnormal finding of lung field

== ENCOUNTER → 2017-10-13 | Outpatient (CLI) | payer OTHER, BC | LOC: RAD 10-08 11:05 | DX: Z12.31 Encounter for screening mammogram for malignant neoplasm of breast (principal) ==

== ENCOUNTER → 2017-11-12 | Outpatient (CLI) | payer OTHER, BC ==
--- NOTE | ~2017-11-12 | 2DMMODE ---
[facility] [place] [address] 2 D/M-MODE ECHOCARDIOGRAM Name: BHANU MAS Room #: REG [facility]#: [id number] Admission: 11/12/17 Attend Phys: So Rush Discharge: Date of : 44 Date of Service: 11/12/17 1040 Report #: [id number] THIS REPORT FOR: //name// APPROVED REPORT Study performed: 11/12/2017 09:27:17 EXAM: Comprehensive 2D, Doppler, and color-flow Echocardiogram Patient Location: Echo lab Status: routine BSA: 1.48 HR: 70 bpm BP: 147/81 mmHg Other Information Study Quality: Adequate Indications Dyspnea 2D Dimensions RVDd: 31.04 mm LVEF(%): 61.90 (>50%) IVSd: 9.92 (7-11mm) LVOT Diam: 18.59 (18-24mm) LVDd: 34.32 mm PWd: 10.02 (7-11mm) Ascending Ao: 29.62 (22-36mm) LVDs: 23.18 (25-40mm) Aortic Root: 32.13 mm IVC: 14.00 mm Madrigal's LVEF: 61.90 % Volumes Left Atrial Volume (Systole) Single Plane 4CH: 32.82 mL Single Plane 2CH: 29.54 mL LA ESV Index: 24.00 mL/m2 Aortic Valve AoV Peak Vitaliy.: 1.13 m/s AO Peak Gr.: 5.13 mmHg LVOT Max P.05 mmHg LVOT Max V: 0.87 m/s MARYLOU Vmax: 2.09 cm2 Mitral Valve E/A Ratio: 0.9 MV Decel. Time: 196.50 ms MV E Max Vitaliy.: 0.80 m/s [facility] [place] [address] 2 D/M-MODE ECHOCARDIOGRAM Name: BHANU MAS Room #: [facility].#: [id number] Admission: 11/12/17 Attend Phys: So Rush Discharge: Date of : 42 Date of Service: 11/12/17 1040 Report #: [id number] MV A Vitaliy.: 0.90 m/s MV PHT: 56.98 ms IVRT: 110.73 ms Pulmonary Valve PV Peak Vitaliy.: 0.94 m/s PV Peak Gr.: 3.57 mmHg Pulmonary Vein P Vein S: 0.39 m/s P Vein A: 0.30 m/s P Vein D: 0.29 m/s P Vein A Dur.: 117.6 msec P Vein S/D Ratio: 1.34 Tricuspid Valve TR Peak Vitaliy.: 2.62 m/s RAP Estimate: 5.00 mmHg TR Peak Gr.: 27.40 mmHg PA Pressure: 32.00 mmHg Left Ventricle The left ventricle is normal size. There is normal left ventricular wall thickness. The left ventricular systolic function is normal. The left ventricular ejection fraction is within the normal range. LVEF is 55-60%. Mild diastolic dysfunction is present (impaired relaxation pattern). Right Ventricle The right ventricle is normal size. The right ventricular systolic function is normal. Atria The left atrium size is normal. The right atrium size is normal. Aortic Valve Mild aortic valve sclerosis. No aortic regurgitation is present. There is no aortic valvular stenosis. Mitral Valve The mitral valve is normal in structure. Trace mitral regurgitation. No evidence of mitral valve stenosis. Tricuspid Valve The tricuspid valve is normal in structure. Mild tricuspid regurgitation. PAP is estimated at 32 mmHg. Pulmonic Valve Pulmonic valve is not well visualized. There is no pulmonic valvular [address] [place] [address] [place] [address] 2 D/M-MODE ECHOCARDIOGRAM Name: BHANU MAS [id number] Admission: 11/12/17 Attend Phys: So Rush Discharge: Date of : 42 Date of Service: 11/12/17 1040 Report #: [id number] regurgitation. Great Vessels The aortic root is normal in size. IVC is normal in size and collapses >50% with inspiration. Pericardium There is no pericardial effusion. <Conclusion> The left ventricle is normal size. LVEF is 55-60%. Mild aortic valve sclerosis. No aortic regurgitation is present. The mitral valve is normal in structure. Trace mitral regurgitation. The tricuspid valve is normal in structure. Mild tricuspid regurgitation. PAP is estimated at 32 mmHg. Pulmonic valve is not well visualized. There is no pericardial effusion. <ELECTRONICALLY SIGNED> By: Romain Love MD 11/12/17 1040 1040 1040 Romain Love MD /INF
== END ==
LOC: CV 09:15
DX: R06.00 Dyspnea, unspecified (principal); I07.1 Rheumatic tricuspid insufficiency; I35.8 Other nonrheumatic aortic valve disorders

== ENCOUNTER → 2018-03-16 | Outpatient (CLI) | payer OTHER, BC ==
--- NOTE | ~2018-03-16 | PFR/MVV ---
[facility] [place] [address] PULMONARY FUNCTION MVV/REPORT Name: CHACEBHANU Room #: REG [facility]#: [id number] Admission: 03/16/18 Attend Phys: Rocky Pace MD, [facility] Discharge: Date of : 42 Report #: [id number] THIS REPORT FOR: //name// >> SPIROMETRY: (BTPS) Height: in cm Weight: lbs kg Exam Date: PRE-RX POST-RX PRED BEST %PRED BEST %PRED %CHG FVC LITERS . . . . . . FEV1 LITERS . . . . . . FEV1/FVC % . . . . . . HRM87-70% L/Sec . . . . . . PEF L/SEC . . . . . . FEF50/FIF50 UNITLESS . . . . . . MVV L/Min . . . f 1/Min . . . >> LUNG VOLUMES: (BTPS) PRE-RX POST-RX PRED AVG %PRED AVG %PRED %CHG VC Liters . . . . . . TLC Liters . . . . . . RV Liters . . . . . . RV/TLC % . . . . . . FRC PL Liters . . . . . . FRC N2 Liters . . . . . . ERV Liters . . . . . . IC Liters . . . . . . >> DIFFUSION: DLCO ml/Min/mmHg . . . . . . DL Elizabeth ml/Min/mmHg . . . . . . DLCO/VA ml/Min/mmHg . . . . . . VA Liters . . . . . . COMMENTS: COMMENTS: >> RESISTANCE: [facility] [address] [place] [address] PULMONARY FUNCTION MVV/REPORT Name: BHANU MAS Room #: REG [facility]#: [id number] Admission: 03/16/18 Attend Phys: Rocky Pace MD, [facility] Discharge: Date of : 42 Report #: [id number] PRE-RX PRED AVG %PRED Raw Total cmH20/L/Sec . . . Raw Insp cmH20/L/Sec . . . Raw Exp cmH20/L/Sec . . . Raw cmH20/L/Sec . . . Gaw L/Sec/cmH20 . . . sRaw cmH20 Sec . . . sGaw l/cmH20 Sec . . . Vtq Liters . . . # = OUTSIDE 95% CONFIDENCE INTERVAL CALIBRATION: PRED: 3.00 ACTUAL: EXP 3.01 INSP 3.02 [facility]-OL03-12 [facility]- N-1804-4 >> INTERPRETATION/IMPRESSION: CC: Omi Pace DATE OF SERVICE: 03/16/2018 PULMONARY FUNCTION STUDIES: FEV1 is 1.34 liters (72%), FVC is 1.56 liters (66%), FEV1/FVC ratio is 86%. Postbronchodilator response with no significant reaction. LUNG VOLUMES: Total lung capacity is 4.61 liters (116%). RV is 3.05 liters (184% predicted). Diffusing capacity is 47%. IMPRESSION: Pulmonary function studies are suggestive of a mixed obstructive and restrictive air flow defect with mild air trapping. There is no significant response to bronchodilator therapy. Diffusing capacity is moderately decreased. By: Omar Peña MD /nt
== END ==
LOC: PUL 09:33
DX: R06.02 Shortness of breath (principal)

== ENCOUNTER → 2018-05-04 | Outpatient (CLI) | payer OTHER, BC | LOC: RAD 10:50 | DX: M19.041 Primary osteoarthritis, right hand (principal); R13.10 Dysphagia, unspecified ==

== ENCOUNTER → 2018-05-26 | Outpatient (CLI) | payer OTHER, BC | LOC: ULTRA 14:04 | DX: M71.21 Synovial cyst of popliteal space [Baker], right knee (principal); I10 Essential (primary) hypertension; J45.909 Unspecified asthma, uncomplicated ==

== ENCOUNTER → 2018-08-11 | Outpatient (CLI) | payer OTHER, BC | LOC: CAT 12:46 | DX: R07.9 Chest pain, unspecified (principal); I10 Essential (primary) hypertension ==

== ENCOUNTER 2018-09-12 16:25 | Inpatient (IN) | payer OTHER, BC ==
[~2018-09-12] VITALS: Ht 152.4 cm; Wt 51.7 kg
[2018-09-12 17:30] VITALS: BP 171/88
[2018-09-12] MEDS ORDERED: ALEVE220 MG PO (18:34)
[2018-09-12] MEDS ORDERED: OMEPRAZOLE 20 M20 M1 PO (18:36)
[2018-09-12] MEDS ORDERED: CALCIUM 500 +1 EAC5 PO (18:40)
[2018-09-12 19:25] VITALS: BP 125/91
--- NOTE | 2018-09-12 19:54 | NUR ---
PATIENT DIRECT FROM DR Alvin REED OFFICE, ALERT AND ORIENTED X4. SR ON THE MONITOR AND VSS. DR HOSKINS NOTINIFIED THAT THE PATIENT IS HERE IN 212 AND NO FURTHER ORDERS GIVE. POC INTIATED AND WILL CONTINUE TO MONITOR PATIENT.
[2018-09-12 21:03] LABS: HEMATOCRIT 36.1 % (37.0-47.0); HEMOGLOBIN 12.1 gm/dL (12.0-15.0); MCH 31.1 pg (26.0-34.0); MCHC 33.7 g/dL (28.0-37.0); MCV 92.3 fL (80.0-100.0); RBC 3.91 mil/uL (4.20-5.00); RDW 13.8 % (10.5-14.5); WBC 5.4 thou/uL (4.0-11.0)
[2018-09-12 21:20] LABS: ALBUMIN 3.4 g/dL (3.4-5.0); ANION GAP 6 mmol/L (7-16); BUN 22 mg/dL (7-18); CALCIUM 8.7 mg/dL (8.5-10.1); CHLORIDE 107 mmol/L (98-107); CO2 26 mmol/L (21-32); GLUCOSE 137 mg/dL (74-106); POTASSIUM 3.7 mmol/L (3.5-5.1); SGOT 18 U/L (15-37); SGPT 28 U/L (30-65); SODIUM 139 mmol/L (136-145); TOTAL BILIRUBIN 0.3 mg/dL (<0.1-1.0); TOTAL PROTEIN 5.7 g/dL (6.4-8.2); TROPONIN-I <0.06 ng/mL (<0.06)
[2018-09-13 05:00] VITALS: BP 149/90
--- NOTE | 2018-09-13 06:52 | NUR ---
SISTERS CARES WERE ASSUMED AT SHIFT CHANGE. SISTER CAME IN DUE TO CHEST PAIN. HER CHEST SO SORE TO THE TOUCH. THOUGHTS ARE CHEST PAIN IS NON CARDIAC. HOURLY ROUNDING WAS DONE PATIENT APPERED TO BE SLEEPING. THE BED IS IN A LOW AND LOCKED POSITION. BED ALARM IS ON.
[2018-09-13 07:12] VITALS: BP 139/72
--- NOTE | 2018-09-13 09:32 | H ---
[facility] [place] [address] HISTORY AND PHYSICAL Name: BHANU MAS Room #: 212-P ADM IN M.R.#: [id number] Admission: 09/12/18 ������������������ Attend Phys: Bg Sharma MD Discharge: ������������������ Date of : 42 Report #: [id number] THIS REPORT FOR: //name// CC: Omi Sharma DATE OF SERVICE: 09/12/2018 CHIEF COMPLAINT: Left shoulder and arm pain. HISTORY OF PRESENT ILLNESS: The patient is a 78-year-old female who was admitted for evaluation of chronic left arm and shoulder pain. Symptoms began 4-6 months ago. She was experiencing pain across her upper back and left shoulder into her left arm, especially at night. This seemed to only occur while lying down. She was evaluated by Cardiology and reports to the office that the workup was "negative." She then developed a cough and shortness of breath and was seen by Pulmonary for history of asthma. She was tried on Advair, but her symptoms of cough and shortness of breath seemed to subside. There was concern of dysphagia symptoms and she had an esophagram. There were some tertiary distal esophageal contractions, but there was no overt stricture or mass. She has been placed on proton pump inhibitor without change. Most recently, however, in progressive fashion, she has had increased pain at night only of the left side of the neck, shoulder and radiating down her arm to her fingers. She had a CT scan of the chest within a month or two that was unremarkable. I presumed at work through the office has been unremarkable as well; however, she continues to have persistent pain nightly that cannot be controlled as an outpatient and she was directed for admission. PAST MEDICAL HISTORY: Hypertension, history of pneumonia, asthma, history of vocal cord paralysis and chronic sinusitis. PAST SURGICAL HISTORY: None. FAMILY HISTORY: Noncontributory. 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 No chronic alcohol or tobacco use. ALLERGIES: SULFA. MEDICATIONS: Calcium, multivitamin, Flonase, omeprazole, vitamin C, zinc, Singulair, verapamil, Flovent and Breo Ellipta. REVIEW OF SYSTEMS: She denies headache, chest pain, abdominal pain, nausea, vomiting, diarrhea, constipation, dysuria or syncope. OBJECTIVE: [facility] [address] [place] [address] HISTORY AND PHYSICAL Name: BHANU MAS Room #: 212-P [facility] IN .R.#: [id number] Admission: 09/12/18 ������������������ Attend Phys: Bg Sharma MD Discharge: ������������������ Date of : 42 Report #: [id number] VITAL SIGNS: Temperature 36.9, pulse 75, respirations 18, blood pressure 171/88 and O2 sat 98% on room air. GENERAL: She is awake and alert, in no distress. HEAD AND NECK: Unremarkable. She does have some loss of cervical lordosis and some T-spine kyphosis. LUNGS: Clear. HEART: Regular. ABDOMEN: Soft. Normoactive bowel sounds. EXTREMITIES: No edema. NEUROLOGICAL: Motor strength 5/5. ASSESSMENT: 1. Radiating to left arm and shoulder pain. 2. Shortness of breath. 3. Asthma. 4. Hypertension. PLAN: Lab and x-ray will be ordered a screening MRI of the neck, does not seem that study of her musculoskeletal issues has been addressed as an outpatient. It is hard to understand whether this is radicular pain or not because it only occurs at night; however, she does say specifically when she is supine, the pain is worse and when she is upright in bed, the pain seems to subside. There are no overt signs of congestive heart failure here as well and as mentioned, the report from the office notes were the cardiac evaluation was negative. ��������������������������������������������� <ELECTRONICALLY SIGNED> ���������������������������������������� By: Bg Sharma MD ��������������������������������������������� 09/13/18931 23 25 Bg Sharma MD /nt
--- NOTE | 2018-09-13 15:09 | NUR ---
Met with patient who is malcom. She works and resides at [facility]. 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 Patient plans dc independently at ma, caset following.
[2018-09-13 15:20] VITALS: BP 140/47
[2018-09-13 16:32] LABS: URINE BILIRUBIN NEGATIVE (Negative); URINE BLOOD NEGATIVE (Negative); URINE CLARITY CLEAR; URINE COLOR YELLOW; URINE GLUCOSE-RANDOM* NEGATIVE (Negative); URINE KETONES NEGATIVE (Negative); URINE LEUKOCYTES-REFLEX TRACE (Negative); URINE NITRITE-REFLEX NEGATIVE (Negative); URINE PROTEIN (DIPSTICK) NEGATIVE (Negative); URINE SPECIFIC GRAVITY 1.015 (1.005-1.035); URINE UROBILINOGEN 0.2 E.U./dl (0.2-1.0)
--- NOTE | 2018-09-13 16:49 | EKG ---
[address] [address] ELECTROCARDIOGRAM REPORT Name: BHANU MAS Room #: 212- ADM IN M.R.#: [id number] ������������������ Admission: 09/12/18 ������������������ Attend Phys: Bg Sharma MD Discharge: ������������������ Date of : 42 Report #: [id number] ����������������������������������������������������������������� [id number] THIS REPORT FOR: //name// [facility] Test Date: 2018-09-12 Test Time: 20:44:43 Pat Name: BHANU MAS Department: Room: 212 Gender: F [employer] Wms Consultant: So WALLS : 1940 Requested By: Bg Sharma Order Number: [id number] MD: Rocky Pace Measurements Intervals [place] Rate: 79 P: 41 DC: 167 QRS: 7 QRSD: 96 T: 27 QT: 377 QTc: 433 Interpretive Statements Sinus rhythm Nonspecific ST segment abnormality Compared to ECG 07/30/2017 06:35:49 no significant change was found Electronically Signed On 09-13-2018 16:49:38 CDT by Rocky Pace [email or web address] ��������������������������������������������� <ELECTRONICALLY SIGNED> ���������������������������������������� By: Rocky Pace MD, [facility] ��������������������������������������������� 09/13/189 43 43 Rocky Pace MD, [facility] /EPI
--- NOTE | 2018-09-13 18:06 | NUR ---
ASSUMED CARE AT SHIFT CHANGE, ALERT AND ORIENTED X4. SR ON THE MONITOR AND BP 150/78, AFEBRILE. C/O EPIGASTRIC PAIN, SHE DENIED TO TAKE MEDICATION AND STATES THAT "IT WILL GO AWAY AFTER A DRINK OF WATER". NPO AFTER MN FOR EGD IN THE MORNING. AND WILL CONTTINUE WITH POC.
[2018-09-13 20:28] VITALS: BP 149/70
[2018-09-14 05:38] VITALS: BP 165/90
[2018-09-14 07:15] VITALS: BP 147/70
--- NOTE | 2018-09-14 07:21 | NUR ---
ASSUME CARE 1900. PT/VITALS STABLE. INTERMITTENT NON CARDIAC CHEST PAIN THAT RADIATES TO LEFT ARM. TRAMADOL FOR RELIEF. UP TO BATHROOM BY SELF. STEADY ON FEET. TOLERATING ACTIVITY WELL. ASSESSMETN CHARTED. PROGRESSING WELL WITH POC. PLAN IS FOR PT TO STAY NPO FOR EGD TODAY. CONSENT SIGNED AND IN THE CHART. WILL CONTINUE TO MONITOR AND FOLLOW WITH POC.
[2018-09-14] MEDS ORDERED: TRAMADOL 50 MG50 MG PO (12:30)
[2018-09-14 14:51] VITALS: BP 147/70
--- NOTE | 2018-09-14 15:38 | NUR ---
ASSESSMENT CHARTED - MEDS PER AUG - NO CO'S OF PAIN OR NAUSEA. PT NPO THIS AM FOR EGD - POST PROCEDURE TYLER WATER AND PUDDING. UP AD KEITH IN ROOM. PT HOME AFTER PROCEDURE. INSTRUCTIONS RE HOME MEDS/ CARE AND FOLLOW UP GIVEN TO PATIENT - STATED UNDERSTANDING OF INSTRUCTIONS GIVEN. LEFT UNIT VIA WHEELCHAIR - HOME VIA PVT VEHICLE ACCOMPANIED BY FRIEND. MONITOR AND IV REMOVED PRIOR TO D/C. NO CO'S AT TIME OF D/C.
--- NOTE | 2018-09-16 00:05 | P ---
[facility] [place] [address] PROCEDURE REPORT Name: BHANU MAS Room #: 212-P [facility] IN M.R.#: [id number] Admission: 09/12/18 ������������������ Attend Phys: Bg Sharma MD Discharge: 09/14/18 ������������������ Date of : 44 Report #: [id number] THIS REPORT FOR: //name// CC: Oim Sharma DATE OF SERVICE: 09/14/2018 PATIENT OF: Dr. Bg Sharma. PROCEDURE: EGD with biopsy and esophageal dilatation. INDICATION FOR PROCEDURE: Dysphagia, undetermined etiology. DESCRIPTION OF PROCEDURE: Informed consent for this procedure was obtained prior to the administration of any medication. The risks of the procedure, which include bleeding, perforation, infection, complications of sedation and the possibility I could miss something have been explained to the patient and she has indicated her consent by signing. Anesthesia kindly provided deep sedation for this procedure. The patient did develop some stridor and recovered quickly from that. The procedure then was started. The Olympus upper videoscope was introduced through the upper esophageal sphincter and advanced under direct visualization to the second portion of the duodenum. Findings were noted on withdrawal of the scope. The duodenal mucosa appeared normal throughout its entirety. Pylorus, mild erythema was noted. Antrum, erythematous mucosa. Body, mild patchy erythema was noted. Cardia and fundus, normal mucosa. Retroflex view did not reveal any hiatal hernia. The scope was withdrawn into the esophagus. The esophageal mucosa appeared normal throughout its entirety. The scope was advanced down into the stomach again. Biopsies are obtained x 3 for histopathology to evaluate the gastritis more thoroughly. Then, a guidewire was advanced through the scope. The scope was withdrawn over the guidewire and a #45-Sudanese Savary dilator was passed over the guidewire with some resistance. That dilator was removed and I attempted to pass a #48-Sudanese dilator over the guidewire and met with a great deal of resistance and I did not force the dilator any further. So I removed the dilator and the guidewire and introduced the scope through the upper esophageal sphincter again and advanced it down through the esophagus and into the stomach and retroflexed. There was no change of the cardia. The esophageal mucosa was intact throughout its entirety. There were no tears or splits from the esophageal dilatation. To me it felt as if the restriction in her swallowing is located in her upper esophagus by the upper esophageal sphincter, but I could [facility] [address] [place] [address] PROCEDURE REPORT Name: BHANU MAS Room #: 212-P DIS IN M.R.#: [id number] Admission: 09/12/18 ������������������ Attend Phys: Bg Sharma MD Discharge: 09/14/18 ������������������ Date of : 42 Report #: [id number] not identify any specific finding there. The scope was withdrawn and the patient went to the recovery area in stable condition. She tolerated the procedure well. IMPRESSION: 1. Normal duodenum and esophagus. 2. Gastritis of the stomach. Biopsies obtained for histopathology, primarily to rule out Helicobacter pylori. I believe the patient may have been taking some nonsteroidals for her neck pain. 3. Passage of a #45-Sudanese Savary dilator over wire as described above. RECOMMENDATIONS: For her to be on H2 receptor antagonist or proton pump inhibitors for the next month or so. She should avoid nonsteroidal anti-inflammatory medications if possible. She may require further esophageal dilatation and I think if I try to do this again because it was so tight, I would recommend it be done under fluoroscopy. Thank you very much once again for allowing me to participate in her care. ��������������������������������������������� <ELECTRONICALLY SIGNED> ���������������������������������������� By: Katheryn Gu DO ��������������������������������������������� 09/16/18 0005 1322 0327 Katheryn Gu DO /nt
--- NOTE | 2018-09-16 11:39 | D ---
[facility] [place] [address] DISCHARGE SUMMARY Name: BHANU MAS Room #: 212-P [facility] IN M.R.#: [id number] Admission: 09/12/18 ������������������ Attend Phys: Bg Sharma MD Discharge: 09/14/18 ������������������ Date of : 42 Report #: [id number] THIS REPORT FOR: //name// CC: Omi Sharma DATE OF SERVICE: 09/14/2018 FINAL DIAGNOSES: 1. Cervical radiculopathy. 2. Cervical disk herniation, C4 and C5. 3. Cervical disk disease. 4. Esophageal dysmotility. HOSPITAL COURSE: The patient was admitted with left shoulder and arm pain. She previously had cardiac and pulmonary workup as an outpatient. It was unremarkable. MRI of the cervical spine revealed degenerative disk disease and there was an area of herniation around C4 and C5. I felt this was the cause of her radicular pain that was very reproducible in a supine position. She received 2 doses of steroids. She was not clear whether that seemed to help. She had taken a steroid pack in the past with no help. She used tramadol for pain. She did complain of trouble swallowing and Dr. Gu performed an EGD with dilatation. Otherwise, she had an uneventful hospital stay. DISPOSITION: She is discharged to home with diet and activity as tolerated, resume all home medications plus Prilosec daily, tramadol p.r.n. for pain. She can use a soft neck brace collar during the day p.r.n. Follow up in the office in 1-2 weeks. ��������������������������������������������� <ELECTRONICALLY SIGNED> ���������������������������������������� By: Bg Sharma MD ��������������������������������������������� 09/16/18 1139 1021 Bg Sharma MD /nt
--- NOTE | 2018-09-16 13:08 | PATH ---
[facility] [address] [place] [address] PATHOLOGY RPT PROCEDURE Name: TALA MAS Room #: 212-P [facility] IN M.R.#: [id number] ������������������ Admission: 09/12/18 ������������������ Date of : 42 Discharge: 09/14/18 Report #: [id number] Path Case #: [id number] [facility] Accession Number: [id number] . 01 Material submitted: . stomach - BX GASTRITIS . 01 Clinical history: . Pre-op diagnosis: Dysphagia Post-op diagnosis: Gastritis, dysphagia . 02 Diagnosis: Gastric biopsy "biopsy gastritis": - Mild chronic reactive gastropathy. - The immunoperoxidase stain for Helicobacter pylori is negative. (SHA:pit 09/16/2018) QTP/09/16/2018 . 02 Electronically signed: . Calin Kumari MD, Pathologist NPI- [id number] . 01 Gross description: . The specimen is received in formalin, labeled "Tala Mas, biopsy gastritis, R/O H. pylori". Received are three segments of pale glover soft tissue ranging in size from 0.4 to 0.5 cm in maximum dimensions. The specimen is submitted entirely in cassette A1. (CAA; 09/15/2018) QAC/QAC . 02 Pathologist provided ICD-10: K31.9 . 02 CPT . 009591, Z66324 Specimen Comment: A courtesy copy of this report has been sent to Specimen Comment: [phone], , . Specimen Comment: Report sent to ,DR HOSKINS / DR REED Performed at: [address], [place] [id number] MD Giorgio Adler MD Phone: [phone] Performed at: [address] [id number] MD Jolene Villeda MD Phone: [phone]
== END 2018-09-14 15:20 | disposition home or self-care (01) | DRG 552 ==
LOC: 2N 16:25 → ENTRNSPT 09-14 14:58 → EDTRNSPTSTS 09-14 15:13 → 2N 09-14 15:20
PROVIDERS: ADMIT Internal Medicine Geriatric Medicine
DX: M50.121 Cervical disc disorder at C4-C5 level with radiculopathy (principal); K22.4 Dyskinesia of esophagus; J45.909 Unspecified asthma, uncomplicated; I10 Essential (primary) hypertension; K29.70 Gastritis, unspecified, without bleeding; K21.9 Gastro-esophageal reflux disease without esophagitis; M19.90 Unspecified osteoarthritis, unspecified site; Z87.01 Personal history of pneumonia (recurrent); Z86.010 Personal history of colon polyps; Z79.1 Long term (current) use of non-steroidal anti-inflammatories (NSAID); Z79.899 Other long term (current) drug therapy; Z88.8 Allergy status to other drugs, medicaments and biological substances; Z88.2 Allergy status to sulfonamides
CPT/HCPCS: 10081; 62110; 62900; 70005

== ENCOUNTER → 2018-10-27 | Outpatient (CLI) | payer OTHER, BC ==
[~2018-10-27] MED LIST changes: +ALEVE220 MG PO; +OMEPRAZOLE 20 M20 M1 PO; +TRAMADOL 50 MG50 MG PO
== END ==
LOC: RAD 01:35
DX: Z12.31 Encounter for screening mammogram for malignant neoplasm of breast (principal)

== ENCOUNTER → 2019-08-07 | Outpatient (CLI) | payer OTHER, BC | LOC: CAT 13:23 | DX: J90 Pleural effusion, not elsewhere classified (principal); R91.1 Solitary pulmonary nodule; J98.11 Atelectasis ==

== ENCOUNTER 2019-10-15 13:00 | Inpatient (IN) | payer OTHER, BC ==
[~2019-10-15] VITALS: Ht 152.4 cm; Wt 52.6 kg
[2019-10-15 13:16] VITALS: BP 135/86
[2019-10-15 13:56] LABS: BASOPHILS 1.1 % (0.0-2.0); EOSINOPHILS 1.1 % (0.0-3.0); HEMOGLOBIN 12.4 gm/dL (12.0-15.0); LYMPHOCYTES 14.9 % (24.0-44.0); MCH 31.3 pg (26.0-34.0); MCHC 33.5 g/dL (28.0-37.0); MCV 93.3 fL (80.0-100.0); MONOCYTES 11.1 % (1.0-8.0); PLATELET COUNT 279 thou/uL (150-400); POLYS 71.8 % (36.0-66.0); RBC 3.96 mil/uL (4.20-5.00); RDW 13.9 % (10.5-14.5); WBC 8.3 thou/uL (4.0-11.0)
[2019-10-15 14:26] LABS: ANION GAP 9 mmol/L (7-16); BUN 15 mg/dL (7-18); CALCIUM 8.1 mg/dL (8.5-10.1); CHLORIDE 103 mmol/L (98-107); CO2 23 mmol/L (21-32); CREATININE 0.9 mg/dL (0.6-1.0); GLUCOSE 81 mg/dL (74-106); POTASSIUM 3.9 mmol/L (3.5-5.1); SODIUM 135 mmol/L (136-145)
[2019-10-15 14:31] VITALS: BP 135/86
[2019-10-15 14:31] LABS: MAGNESIUM 1.9 mg/dL (1.8-2.4); TROPONIN-I <0.06 ng/mL (<0.06)
[2019-10-15 14:32] LABS: URINE BILIRUBIN NEGATIVE (Negative); URINE BLOOD NEGATIVE (Negative); URINE CLARITY CLEAR; URINE COLOR YELLOW; URINE GLUCOSE-RANDOM* NEGATIVE (Negative); URINE KETONES NEGATIVE (Negative); URINE LEUKOCYTES-REFLEX NEGATIVE (Negative); URINE NITRITE-REFLEX NEGATIVE (Negative); URINE PROTEIN (DIPSTICK) NEGATIVE (Negative); URINE SPECIFIC GRAVITY <= 1.005 (1.005-1.035); URINE UROBILINOGEN 0.2 E.U./dl (0.2-1.0)
[2019-10-15 16:21] LABS: BE(vivo) -0.5 mmol/L (-2 to +3); HCO3 22.5 mmol/L (22.0-26.0); PCO2 32.3 mmHg (35.0-45.0); PO2 83.7 mmHg (80.0-100.0); pH 7.461 (7.360-7.450); sO2 96.9 % (92.0-98.0)
[2019-10-15] MEDS ORDERED: SYMBICORT160 MCG/4. INH (18:26)
[2019-10-15] MEDS ORDERED: NEURONTIN100 MG PO (18:27)
[2019-10-15] MEDS ORDERED: GABAPENTIN100 MG PO (18:28)
[2019-10-15] MEDS ORDERED: SPIRIVA RESPIMAT4 G1 INH (18:32)
[2019-10-15] MEDS ORDERED: SINGULAIR 10 MG10 MG PO (18:33)
[2019-10-15 21:00] VITALS: BP 141/82
[2019-10-15 21:23] VITALS: BP 139/90
[2019-10-15 23:15] VITALS: BP 131/89
[2019-10-16 01:11] VITALS: BP 122/81
[2019-10-16 05:20] VITALS: BP 133/80
[2019-10-16 08:01] VITALS: BP 125/81
[2019-10-16 08:32] LABS: ABSOLUTE NEUTROPHILS 3.7 thou/uL (1.4-8.2); BASOPHILS 0.2 % (0.0-2.0); HEMATOCRIT 34.9 % (37.0-47.0); LYMPHOCYTES 13.4 % (24.0-44.0); MCHC 34.3 g/dL (28.0-37.0); MCV 93.1 fL (80.0-100.0); MONOCYTES 9.2 % (1.0-8.0); PLATELET COUNT 266 thou/uL (150-400); POLYS 77.2 % (36.0-66.0); RBC 3.75 mil/uL (4.20-5.00); RDW 14.2 % (10.5-14.5); WBC 4.8 thou/uL (4.0-11.0)
--- NOTE | 2019-10-16 08:38 | EKG ---
[facility] [place] [address] ELECTROCARDIOGRAM REPORT Name: BHANU MAS Room #: 355-P ADM IN M.R.#: [id number] Admission: 10/15/19 Attend Phys: Mary Teixeira MD Discharge: Date of : 42 Report #: [id number] THIS REPORT FOR: cc: Omi Grigsby MD, Christopher B. MD Lundgren,Rocky Powers MD [facility] ~ THIS REPORT FOR: //name// 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
[2019-10-16] MEDS ORDERED: MUCINEX DM ER1 EAC1 PO (08:58)
[2019-10-16 09:07] LABS: CALCIUM 8.1 mg/dL (8.5-10.1); CREATININE 0.8 mg/dL (0.6-1.0); MAGNESIUM 2.3 mg/dL (1.8-2.4); PHOSPHORUS 3.4 mg/dL (2.5-4.9); POTASSIUM 3.5 mmol/L (3.5-5.1); TOTAL BILIRUBIN 0.4 mg/dL (<0.1-1.0); TOTAL PROTEIN 5.6 g/dL (6.4-8.2)
[2019-10-16 11:20] VITALS: BP 108/71
[2019-10-16 16:03] VITALS: BP 102/65
[2019-10-16 20:00] VITALS: BP 116/74
[2019-10-17 03:59] VITALS: BP 142/90
[2019-10-17 07:31] LABS: CALCIUM 8.3 mg/dL (8.5-10.1); POTASSIUM 4.2 mmol/L (3.5-5.1)
[2019-10-17 08:22] VITALS: BP 133/87
[2019-10-17 11:53] VITALS: BP 124/76
--- NOTE | 2019-10-17 15:48 | 2DMMODE ---
[facility] [place] [address] 2 D/M-MODE ECHOCARDIOGRAM Name: BHANU MAS Room #: 355-P ADM IN M.R.#: [id number] Admission: 10/15/19 Attend Phys: Mary Teixeira MD Discharge: Date of : 42 Report #: [id number] THIS REPORT FOR: cc: Omi Grigsby MD, Christopher B. MD Lundgren, Craig H. MD [facility] ~ APPROVED REPORT Study performed: 10/17/2019 14:08:47 EXAM: Comprehensive 2D, Doppler, and color-flow Echocardiogram Patient Location: Bedside Room #: 355 Status: routine BSA: 1.41 HR: 84 bpm BP: 142/90 mmHg Rhythm: NSR Other Information Study Quality: Adequate Indications Short of breath, CHF exacerbation. Hx: HTN, COPD. 2D Dimensions RVDd: 35.34 mm IVSd: 12.04 (7-11mm) LVOT Diam: 20.23 (18-24mm) LVDd: 43.46 mm PWd: 8.15 (7-11mm) Ascending Ao: 27.65 (22-36mm) LVDs: 38.08 (25-40mm) Aortic Root: 33.96 mm Volumes Left Atrial Volume (Systole) Single Plane 4CH: 53.06 mL Single Plane 2CH: 37.94 mL LA ESV Index: 40.00 mL/m2 Aortic Valve AoV Peak Vitaliy.: 1.04 m/s AO Peak Gr.: 4.31 mmHg LVOT Max P.73 mmHg LVOT Max V: 0.66 m/s MARYLOU Vmax: 2.03 cm2 [facility] [address] [place] [address] 2 D/M-MODE ECHOCARDIOGRAM Name: BHANU MAS Room #: 355-P [facility] IN [facility]#: [id number] Admission: 10/15/19 Attend Phys: Mary Teixeira, Discharge: Date of : 42 Report #: [id number] Mitral Valve E/A Ratio: 1.5 MV Decel. Time: 158.46 ms MV E Max Vitaliy.: 1.07 m/s MV A Vitaliy.: 0.73 m/s MV PHT: 45.95 ms IVRT: 44.98 ms Pulmonary Valve PV Peak Vitaliy.: 0.96 m/s PV Peak Gr.: 3.68 mmHg Pulmonary Vein P Vein S: 0.34 m/s P Vein A: 0.34 m/s P Vein D: 0.31 m/s P Vein A Dur.: 106.1 msec P Vein S/D Ratio: 1.10 Tricuspid Valve TR Peak Vitaliy.: 3.17 m/s RAP Estimate: 10.00 mmHg TR Peak Gr.: 40.24 mmHg PA Pressure: 50.00 mmHg Left Ventricle The left ventricle is normal size. Mild basal septal hypertrophy is present. Left ventricular systolic function is moderately decreased. Distal septal and anteroapical hypokinesis LVEF is 35-40%. Moderate diastolic dysfunction is present (pseudonormal filling). Right Ventricle The right ventricle is normal size. The right ventricular systolic function is normal. Atria Left atrium is moderately dilated. The right atrium size is normal. Aortic Valve Aortic valve is mildly calcified, trileaflet No aortic regurgitation is present. There is no aortic valvular stenosis. Mitral Valve Mitral valve leaflets are mildly calcified. Mild to moderate mitral regurgitation. No evidence of mitral valve stenosis. Tricuspid Valve The tricuspid valve is normal in structure. Moderate tricuspid [facility] [address] [place] [address] 2 D/M-MODE ECHOCARDIOGRAM Name: BHANU MAS Room #: 355-P [facility] IN ..#: [id number] Admission: 10/15/19 Attend Phys: Mary Teixeira, Discharge: Date of : 42 Report #: [id number] regurgitation. Estimated PAP is 50mmHg. Pulmonic Valve The pulmonary valve is normal in structure. Trace pulmonic regurgitation. Great Vessels The aortic root is normal in size. The ascending aorta is normal in size. IVC is normal in size and collapses <50% with inspiration. Pericardium There is no pericardial effusion. Left and right pleural effusions noted. <Conclusion> Left ventricular systolic function is moderately decreased. Distal septal and anteroapical hypokinesis LVEF is 35-40%. Moderate diastolic dysfunction is present (pseudonormal filling). Left atrium is moderately dilated. Aortic valve is mildly calcified, trileaflet. No aortic regurgitation or stenosis Mitral valve leaflets are mildly calcified. Mild to moderate mitral regurgitation. Moderate tricuspid regurgitation. Estimated pulmonary artery pressure of 50mmHg. There is no pericardial effusion. <ELECTRONICALLY SIGNED> By: Rocky Pace MD, [facility] 10/17/19 1546 1546 1546 Rocky Pace MD, FACC /INF
[2019-10-17 16:10] VITALS: BP 145/85
[2019-10-17 17:21] VITALS: BP 113/82
[2019-10-17 19:37] VITALS: BP 114/74
[2019-10-18 03:45] VITALS: BP 126/76
[2019-10-18 05:32] LABS: CALCIUM 8.6 mg/dL (8.5-10.1); CREATININE 1.2 mg/dL (0.6-1.0); POTASSIUM 3.7 mmol/L (3.5-5.1)
[2019-10-18 08:00] VITALS: BP 114/79
--- NOTE | 2019-10-18 08:05 | EKG ---
[facility] [place] [address] ELECTROCARDIOGRAM REPORT Name: BHANU MAS Room #: 202-P ADM IN M.R.#: [id number] Admission: 10/15/19 Attend Phys: Mary Teixeira MD Discharge: Date of : 42 Report #: [id number] THIS REPORT FOR: cc: Omi Grigsby MD, Christopher B. MD Couchonnal, Luis F. 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
[2019-10-18 08:08] LABS: CHOLESTEROL 183 mg/dL (<200); HDL CHOLESTEROL 73 mg/dL (>40); LDL CHOLESTEROL 98 mg/dL (<100); TC:HDL 2.5 Ratio (Not establshd); TRIGLYCERIDE 60 mg/dL (<150); VLDL 12 mg/dL (<40)
[2019-10-18 11:30] VITALS: BP 98/62
[2019-10-18 16:30] VITALS: BP 96/57
[2019-10-19] VITALS (13 sets, daily range): BP systolic 100–153; BP diastolic 49–90
[2019-10-19 04:58] LABS: CALCIUM 8.8 mg/dL (8.5-10.1); CREATININE 1.1 mg/dL (0.6-1.0); POTASSIUM 4.7 mmol/L (3.5-5.1)
--- NOTE | 2019-10-19 15:19 | CATHLAB ---
[facility] [place] [address] INVASIVE PROCEDURE REPORT Name: BHANU MAS Room #: 202-P ADM IN M.R.#: [id number] Admission: 10/15/19 Attend Phys: Mary Teixeira MD Discharge: Date of : 42 Report #: [id number] THIS REPORT FOR: cc: Omi Grigsby MD, Christopher B. MD Lundgren, Craig H. MD [facility] ~ APPROVED REPORT Study performed: 10/19/2019 11:52:26 Patient Details Patient Status: In-Patient Room #: 202 The patient is a 79 year-old female Event Personnel Rocky Pace Credit Representative, Ally Hernandez RTR, PUBLIC HEALTH TRAINING ASSISTANT Monitor, Sandra Valencia RN RN, [place] RTR Scrub Procedures Performed Art Access - R femoral artery* Left Heart Cath w/or w/o Coronaries [id number] [facility] MITCH Place w/wo Plasty Single LAD 630420 03308 Initial Mod Sed Same Phys/QHP Gr5y 662891 01256 Mod Sed Same Phys/QHP Ea 928571 Hemostasis w/ Mynx Hemostasis with Manual pressure Indication CHF Current Status: Yes , Chest pain Procedure Narrative The Right Groin^ was infiltrated with 1% Lidocaine subcutaneous anesthesia. A PINNACLE 6FR Sheath #[id number] sheath was inserted into the RFA^. Coronary angiography was performed using coronary diagnostic catheters. The right coronary system was accessed and visualized with a JR4 catheter. The left coronary system was accessed and visualized with a JL4 catheter. The left ventricle was accessed and visualized with a angled pigtail catheter. Left ventricular/Aortic Valve gradient assessed via catheter pullback. Left ventriculogram was performed in 30 degree projection. Closure device was deployed with a 6 Fr MYNXGRIP 6/7F #[id number]. A hematoma occurred. Intraoperative Conscious Sedation Sedation start time: 12:07 Case end Time: 13:29 [facility] [email or web address] [address] INVASIVE PROCEDURE REPORT Name: BHANU MAS Room #: 202-P [facility] IN ..#: [id number] Admission: 10/15/19 Attend Phys: Mary Teixeira, Discharge: Date of : 42 Report #: [id number] Fentanyl 100 mcg Versed 1 mg Fluoro Time: 8.21 minutes Dose: DAP 3346.90 cGycm2 469 mGy Contrast Type and Amount: Visipaque 195 ml Coronary Angiography The patient's coronary anatomy is left dominant. Diagnostic Cath Left Main Normal left main LAD Critical 99% proximal LAD stenosis at the first septal perforating branch. ML I flow Diagonal 1 Minimal ostial plaquing, otherwise normal Diagonal 2 Minimal ostial plaquing, otherwise normal. Circumflex Dominant circumflex, angiographically normal Right Coronary Small, thready nondominant right coronary Ramus Large ramus branch with 20 to 30% proximal plaquing Left Ventriculography The left ventricle is mild to moderately dilated in size with abnormal contractility. The left ventricular ejection fraction is estimated to be 30-35%. Left ventricular wall motion abnormalities are present. There is 1+ mitral insufficiency. Extensive anterolateral, apical, and inferoapical hypokinesis Hemodynamics The aortic pressure is 128/46 mmHg with a mean of 80 mmHg. The left ventricular pressure is 122/8 mmHg with a mean of mmHg. The left ventricular end diastolic pressure is 20 mmHg. PCI Technique Lesion Anticoagulation was achieved with Heparin, Integrilin. Patient was preloaded with Plavix. Percutaneous coronary intervention was performed on the proximal left anterior descending artery segment. The lesion stenosis prior to intervention was 99% with ML 1 flow. A LAUNCHER 6FR EBU 3.5 #[id number] Guide Catheter was used to engage the left main ostium. A Luge Wire .014 x 182CM #[id number] Interventional Guidewire was used to cross the lesion. BALLOON DILATION A Balloon catheter Euphora RX 2.5 x 12 #[id number] was inserted and inflated up to 10.00atm for 34seconds. STENT DEPLOYMENT [facility] [address] [place] [address] INVASIVE PROCEDURE REPORT Name: CHACEBHANU M Room #: 202-P [facility] IN ..#: [id number] Admission: 10/15/19 Attend Phys: Mary Teixeira, Discharge: Date of : 42 Report #: [id number] A drug-eluting stent RESOLUTE SHELLY RX 3.0 X 12 #[id number] was inserted and inflated up to 12.00atm for 34seconds. Repeat angiography revealed the following post-stent deployment results: 0% residual with ML-3 flow restored. POST STENT DEPLOYMENT BALLOON DILATION A Balloon catheter TREK NC RX 3.0 X 8 #[id number] was inserted and inflated up to 16.00atm for 29seconds. Additional Inflation: 16.00atm for 25seconds. Additional Inflation: 18.00atm for 23seconds. Moderate diffuse disease throughout the body of the LAD Final angiography reveals 0 % stenosis with ML 3 flow. Conclusion 1. Moderately severe left ventricular dysfunction with extensive anterolateral, apical, and inferoapical wall hypokinesis. Ejection fraction 30-35% 2. Normal left main 3. Critical proximal LAD stenosis stented with a 3.0 x 12mm Resolute medicated stent 4. Large ramus branch with 20 to 30% proximal plaquing 5. Dominant circumflex with mild plaquing 6. Small, thready nondominant right coronary Recommendations Cardiac Rehabilitation Referral Aggressive Medical Therapy <ELECTRONICALLY SIGNED> By: Rocky Pace MD, [facility] 10/19/191516 16 16 Rocky Pace MD, FACC /INF
[2019-10-20 00:39] VITALS: BP 93/49
[2019-10-20 04:15] LABS: HEMATOCRIT 36.7 % (37.0-47.0); HEMOGLOBIN 12.3 gm/dL (12.0-15.0); MCH 31.6 pg (26.0-34.0); MCHC 33.6 g/dL (28.0-37.0); RBC 3.9 mil/uL (4.20-5.00); RDW 14.1 % (10.5-14.5); WBC 7.7 thou/uL (4.0-11.0)
[2019-10-20 04:18] LABS: ALBUMIN 2.6 g/dL (3.4-5.0); POTASSIUM 4.1 mmol/L (3.5-5.1); TOTAL BILIRUBIN 0.4 mg/dL (<0.1-1.0); TOTAL PROTEIN 4.8 g/dL (6.4-8.2); TROPONIN-I 0.08 ng/mL (<0.06)
[2019-10-20 04:44] VITALS: BP 106/54
[2019-10-20 07:00] VITALS: BP 93/61
[2019-10-20 08:10] VITALS: BP 93/61
--- NOTE | 2019-10-20 08:21 | EKG ---
[facility] [place] [address] ELECTROCARDIOGRAM REPORT Name: BHANU MAS Room #: 202-P ADM IN M.R.#: [id number] Admission: 10/15/19 Attend Phys: Mary Teixeira MD Discharge: Date of : 42 Report #: [id number] THIS REPORT FOR: cc: Omi Grigsby MD, Christopher B. MD Couchonnal, Luis F. MD ~ THIS REPORT FOR: //name// [facility] Test Date: 2019-10-19 Test Time: 15:56:04 Pat Name: BHANU MAS Department: Room: 202 P Gender: F Nursing Program Chair: So WALLS : 1940 Requested By: Rocky Pace Order Number: [id number] MD: Jesus Cuellar Measurements Intervals [place] Rate: 69 P: 41 MA: 163 QRS: -17 QRSD: 82 T: 59 QT: 439 QTc: 471 Interpretive Statements Sinus rhythm Probable left atrial enlargement Borderline left axis deviation Anterior infarct, old Compared to ECG 10/17/2019 09:44:52 Myocardial infarct finding now present Electronically Signed On 10-20-2019 8:19:51 CDT by Jesus Cuellar [email or web address] <ELECTRONICALLY SIGNED> By: Jesus Cuellar MD 10/20/19 0819 1556 1556 Jesus Cuellar MD /EPI
--- NOTE | 2019-10-20 08:23 | EKG ---
[facility] [place] [address] ELECTROCARDIOGRAM REPORT Name: BHANU MAS Room #: 202-P ADM IN M.R.#: [id number] Admission: 10/15/19 Attend Phys: Mary Teixeira MD Discharge: Date of : 42 Report #: [id number] THIS REPORT FOR: cc: Omi Grigsby MD, Christopher B. MD Couchonnal, Luis F. MD ~ THIS REPORT FOR: //name// [facility] Test Date: 2019-10-20 Test Time: 08:00:07 Pat Name: BHANU MAS Department: Room: 202 P Gender: F Student Ministries Director: JJ : 1940 Requested By: Rocky Pace Order Number: [id number] MD: Jesus Cuellar Measurements Intervals [place] Rate: 69 P: 40 TX: 163 QRS: -17 QRSD: 78 T: 99 QT: 387 QTc: 415 Interpretive Statements Sinus rhythm Anterior infarct, old Nonspecific T abnormalities, lateral leads Compared to ECG 10/17/2019 09:44:52 Electronically Signed On 10-20-2019 8:21:31 CDT by Jesus Cuellar [email or web address] <ELECTRONICALLY SIGNED> By: Jesus Cuellar MD 10/20/19820 9 9 Jesus Cuellar MD /EPI
[2019-10-20 10:50] VITALS: BP 91/59
[2019-10-20] MEDS ORDERED: COZAAR 25 MG TA25 M1 PO (11:00)
[2019-10-20] MEDS ORDERED: ASPIR 8181 MG PO (11:00)
[2019-10-20] MEDS ORDERED: K-DUR10 MEQ PO (11:00)
[2019-10-20] MEDS ORDERED: TORSEMIDE10 MG PO (11:00)
[2019-10-20] MEDS ORDERED: CARVEDILOL3.125 MG PO (11:00)
[2019-10-20] MEDS ORDERED: LIPITOR40 MG PO (11:00)
[2019-10-20] MEDS ORDERED: CLOPIDOGREL75 MG PO (11:00)
[2019-10-20] MEDS ORDERED: COLACE100 MG PO (14:17)
[2019-10-20] MEDS ORDERED: CLARITIN10 MG PO (14:17)
[2019-10-20] MEDS ORDERED: MIRALAX17 GM PO (14:17)
[2019-10-20] MEDS ORDERED: PREDNISONE 20 M20 MG PO (14:18)
== END 2019-10-20 16:24 | DRG 246 ==
LOC: ER 13:00 → 3W 17:01 → EROBS 17:01 → 3W 21:01 → 2N 10-17 16:54 → ENTRNSPT 10-20 16:17 → 2N 10-20 16:24
PROVIDERS: Emergency Medicine Emergency Medical Services; Internal Medicine; ADMIT Internal Medicine
PROC: B211YZZ Fluoroscopy of Multiple Coronary Arteries using Other Contrast (ICD-10-PCS; principal; 2019-10-19)
PROC: 4A023N7 Measurement of Cardiac Sampling and Pressure, Left Heart, Percutaneous Approach (ICD-10-PCS; principal; 2019-10-19)
PROC: B215YZZ Fluoroscopy of Left Heart using Other Contrast (ICD-10-PCS; principal; 2019-10-19)
PROC: 027034Z Dilation of Coronary Artery, One Artery with Drug-eluting Intraluminal Device, Percutaneous Approach (ICD-10-PCS; principal; 2019-10-19)
DX: I13.0 Hypertensive heart and chronic kidney disease with heart failure and stage 1 through stage 4 chronic kidney disease, or unspecified chronic kidney disease (principal); J96.01 Acute respiratory failure with hypoxia; I50.43 Acute on chronic combined systolic (congestive) and diastolic (congestive) heart failure; N17.9 Acute kidney failure, unspecified; I25.10 Atherosclerotic heart disease of native coronary artery without angina pectoris; J45.909 Unspecified asthma, uncomplicated; J44.9 Chronic obstructive pulmonary disease, unspecified; M47.9 Spondylosis, unspecified; I27.20 Pulmonary hypertension, unspecified; M41.9 Scoliosis, unspecified; R91.1 Solitary pulmonary nodule; K21.9 Gastro-esophageal reflux disease without esophagitis; Z20.828 Contact with and (suspected) exposure to other viral communicable diseases; N18.9 Chronic kidney disease, unspecified; I25.5 Ischemic cardiomyopathy; E78.5 Hyperlipidemia, unspecified; I25.2 Old myocardial infarction; Z88.2 Allergy status to sulfonamides; Z88.8 Allergy status to other drugs, medicaments and biological substances; Z82.49 Family history of ischemic heart disease and other diseases of the circulatory system; Z80.0 Family history of malignant neoplasm of digestive organs; Z79.899 Other long term (current) drug therapy
CPT/HCPCS: 10081; 10879

== ENCOUNTER 2019-10-20 14:13 | Inpatient (IN) | payer OTHER, BC ==
[~2019-10-20] VITALS: Ht 152.4 cm; Wt 47.1 kg
--- NOTE | ~2019-10-20 | H ---
[facility] [place] [address] HISTORY AND PHYSICAL Name: BHANU MAS Room #: 501-A ADM IN .R.#: [id number] Admission: 10/20/19 Attend Phys: Bg Lundberg MD Discharge: Date of : 42 Report #: [id number] THIS REPORT FOR: cc: Omi Grigsby MD,Omi Lundberg,Bg Brody MD ~ CC: Omi Lundberg DATE OF SERVICE: 10/20/2019 HISTORY AND PHYSICAL AND POSTADMISSION PHYSICIAN EVALUATION HISTORY OF PRESENT ILLNESS: The patient is a 79-year-old female who was admitted for acute in-hospital inpatient rehabilitation. The patient was initially admitted to [facility] on 10/15/2019 with increased shortness of breath and cough. She was diagnosed with acute hypoxic respiratory failure secondary to acute systolic CHF. Pulmonary has been involved as well as Cardiology. She was given diuresis, antibiotics, and nebulizers. She underwent LAD stenting on 10/19/2019 due to coronary artery disease, also with ischemic cardiomyopathy, moderate to severe left ventricular dysfunction and hypertension. She was noted to be weak and deconditioned and has generalized debilitation with medical complexity. She has now been admitted for acute in-hospital inpatient rehabilitation. PAST MEDICAL HISTORY: Includes hypertension and lung disease. PAST SURGICAL HISTORY: Hernia repair, rectal prolapse repair. FAMILY HISTORY: Noncontributory. MEDICATIONS: Please see the full medication listing. ALLERGIES: QUINAPRIL AND SULFA. 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 She indicated she does not have to go up any steps to get into the house. She was premorbidly independent with ADLs and sharing IADLs. She did not utilize any assistive devices. REVIEW OF SYSTEMS: Did not offer any current complaints of chest pain, shortness of breath or abdominal discomfort. PHYSICAL EXAMINATION: GENERAL: The patient was seen earlier, was in no distress. [facility] [address] [place] [address] HISTORY AND PHYSICAL Name: BHANU MAS Room #: 501-A [facility] IN ..#: [id number] Admission: 10/20/19 Attend Phys: Bg Lundberg MD Discharge: Date of : 42 Report #: [id number] VITAL SIGNS: Stable. HEENT: Appeared to be benign. CHEST: Some diffuse decreased breath sounds. CARDIOVASCULAR: Sounded regular rate and rhythm. ABDOMEN: Bowel sounds positive, nontender. GENITOURINARY AND RECTAL: Deferred. NEUROLOGIC: She is pleasant of slender build, small statured. She has, I believe, right eye esotropia. Functional range of motion of both upper extremities. Strength is grade 3+ to 4-/5. Lower extremities functional range of motion with strength grade 3+ to 4-/5. DTRs are trace to 1. She has been min assist with basic transfers and has ambulated short distances min to mod assist. There is no calf swelling. ASSESSMENT: A 79-year-old white female with the following problem list: 1. Medical complex with generalized debilitation. 2. Initial acute systolic heart failure with an ejection fraction of 35-40%. 3. Coronary artery disease, status post LAD stenting. 4. History of asthma with dyspnea. 5. Ischemic cardiomyopathy. 6. Acute respiratory failure that has resolved. 7. Hypertension. 8. Hyperlipidemia. 9. Scoliosis. PLAN: The patient has been admitted for acute in-hospital inpatient rehabilitation. From a postadmission physician evaluation perspective, there are no relevant changes since the preadmission screening. Please see the above review of prior and current medical and functional conditions and comorbidities. Please see the patient's previous and current functional status. As far as risk of complications, she has multiple medical comorbidities as noted above. Initial plan of care involves the interdisciplinary acute inpatient rehabilitation program. Measurable functional goals would be for the patient to become modified independent with transfers, mobility, ADLs, so she can return back to the home setting. Prognosis is reasonably good with estimated length of stay probably around 5-10 days pending progress. Potential barriers would include her multiple medical comorbidities and decreased functional status. The patient meets diagnostic criteria for an acute in-hospital inpatient rehabilitation stay. She meets medical necessity criteria and we will have the risk and insurance consultant physicians continue to follow. She does have the tolerance for therapies and has appropriate discharge goals back to the home setting. By: 1215 [id number] Bg Lundberg MD /nt
--- NOTE | ~2019-10-20 | PLAN ---
[facility] [address] REHAB UNIT PLAN OF CARE Name: BHANU MAS Room #: 501-A ADM IN ..#: [id number] Admission: 10/20/19 Attend Phys: Bg Lundberg MD Discharge: Date of : 42 Report #: [id number] THIS REPORT FOR: //name// CC: Omi Lundberg DATE OF SERVICE: 10/23/2019 PROGRESS NOTE AND OVERALL PLAN OF CARE SUBJECTIVE: The patient is seen back today in followup. She is in no distress. Last recorded temperature 97.5, pulse 77, respirations 16, blood pressure 101/49. She is pleasant. No calf swelling. Chest, sounds clear to auscultation. Cardiac, regular rate and rhythm. Abdomen, bowel sounds positive, nontender. Transfers are contact guard assistance with gait 150 feet contact guard without a device. Occupational therapy is involved with lower body dressing, contact guard assistance. ASSESSMENT: 1. Medical complex with generalized debilitation. 2. Initial acute systolic heart failure with an ejection fraction of 35-40%. 3. Coronary artery disease, status post LAD stenting. 4. History of asthma with dyspnea. 5. Ischemic cardiomyopathy. 6. Acute respiratory failure, that has resolved. 7. Hypertension. 8. Hyperlipidemia. 9. Scoliosis. PLAN: The overall plan of care is based on the preadmission screen, post-admission physician evaluation and information garnered from therapy assessments. 1. Estimated length of stay is probably at least 5-10 days. 2. Medical prognosis is reasonably good. 3. Anticipated interventions include the interdisciplinary acute inpatient rehabilitation program. 4. Anticipated functional outcomes would be for the patient to become modified independent with transfers, mobility and ADLs, so that she can hopefully return back to her prior living situation. 5. 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 [facility] [address] [place] [address] REHAB UNIT PLAN OF CARE Name: BHANU MAS Room #: 501-A [facility] IN [facility]#: [id number] Admission: 10/20/19 Attend Phys: Bg Lundberg MD Discharge: Date of : 42 Report #: [id number] 6. Expected therapy by discipline includes PT, OT 1-1/2 hours per day each 5 days a week throughout the duration of the acute inpatient rehabilitation stay. By: 0932 2046 Bg Lundberg MD /PMT
[~2019-10-20 14:13] MED LIST changes: +ASPIR 8181 MG PO; +CARVEDILOL3.125 MG PO; +CLOPIDOGREL75 MG PO; +COZAAR 25 MG TA25 M1 PO; +GABAPENTIN100 MG PO; +K-DUR10 MEQ PO; +LIPITOR40 MG PO; +MUCINEX DM ER1 EAC1 PO; +NEURONTIN100 MG PO; +SINGULAIR 10 MG10 MG PO; +SPIRIVA RESPIMAT4 G1 INH; +SYMBICORT160 MCG/4. INH; +TORSEMIDE10 MG PO
[2019-10-20] MEDS ORDERED: COLACE100 MG PO (14:17)
[2019-10-20] MEDS ORDERED: MIRALAX17 GM PO (14:17)
[2019-10-20] MEDS ORDERED: CLARITIN10 MG PO (14:17)
[2019-10-20] MEDS ORDERED: PREDNISONE 20 M20 MG PO (14:18)
[2019-10-20 16:38] VITALS: BP 107/68
--- NOTE | 2019-10-20 19:11 | NUR ---
PT ARRIVED AT 1630. ALERT AND ORIENTED*4. DENIES PAIN. VITALS STABLE. RIGHT GROIN INCISION IS DRY AND INTACT, BRUISING NOTED AROUND SITE. UP WITH 1 CONTACT GUARD AND GB AND TOLERATED WELL. Q1H VISUAL CHECKS. CALL LIGHT WITHIN REACH. FALL PRECAUTIONS IN PLACE
[2019-10-20 20:15] VITALS: BP 110/62
--- NOTE | 2019-10-21 01:12 | NUR ---
UP IN CHAIR UNTIL TEN PM. UP TO TOILET WITH CONTACT GUARD FOR VOIDING, DECLINED HS COLACE, DAILY COLACE IS SUFFICIENT FOR NOW. PLEASANT AND WITHOUT PAIN.
[2019-10-21 05:35] LABS: HEMATOCRIT 36.2 % (37.0-47.0); MCH 31.3 pg (26.0-34.0); MCHC 33.3 g/dL (28.0-37.0); RBC 3.85 mil/uL (4.20-5.00); RDW 14.3 % (10.5-14.5); WBC 8.4 thou/uL (4.0-11.0)
[2019-10-21 05:45] LABS: CALCIUM 8.1 mg/dL (8.5-10.1); CREATININE 1.1 mg/dL (0.6-1.0); POTASSIUM 3.6 mmol/L (3.5-5.1)
[2019-10-21 09:00] VITALS: BP 109/66
--- NOTE | 2019-10-21 11:14 | NUR ---
ASSUMED CARES AT 0700. PT AWAKE, ALERT AND ORIENTED*4. DENIES PAIN. VITALS STABLE. PT HAVING A DRY COUGH, SOB WITH EXERCION, PROVIDER NOTIFIED. LS CLEAR, SATS >95% ON RA. RIGHT GROIN SITE REMAINS BRUISED, DRESSING DC'D, NO BLEEDING OR DRAINAGE NOTED ON SITE. PT PARTICIPATING WELL IN ALL THERAPIES. UP WITH SBA, GB AND WALKER. Q1H VISUAL CHECKS. CALL LIGHT WITHIN REACH. FALL PRECAUTIONS IN PLACE
[2019-10-21 19:38] VITALS: BP 89/53
--- NOTE | 2019-10-22 01:50 | NUR ---
assumed care of pt at approx 1900 evening 10/20. pt sitting up in recliner at change of shift alert and oriented x4, pleasant and cooperative. pt c/o dry cough and given prn cough med. pt took hs meds with water tolerating well. pt appears to be sleeping soundly with hourly rounding checks. bed alarm on and call light in reach. will continue to monitor.
[2019-10-22 07:40] VITALS: BP 122/62
--- NOTE | 2019-10-22 10:41 | NUR ---
ASSUMED CARE AROUND 0700, PT A&O X 4, NO ACUTE DISTRESS DURING SHIFT. VSS, O2 ON RA. PT DENIES ANY PAIN OR DISCOMFORT, MEDS GIVEN PER ORDERS. DRESSING TO R GROIN INTACT, NO BLEEDING TO SITE. CONTINENT OF B&B, [facility] 10/21/19, SITTING IN BED, CALL LIGHT WITHIN REACH, WILL CONTINUE TO MONITOR PER POC.
[2019-10-22 13:17] LABS: HEMATOCRIT 39.7 % (37.0-47.0); MCHC 32.8 g/dL (28.0-37.0); MCV 94.4 fL (80.0-100.0); RBC 4.2 mil/uL (4.20-5.00); RDW 13.9 % (10.5-14.5); WBC 9.1 thou/uL (4.0-11.0)
[2019-10-22 13:32] LABS: ALBUMIN 2.9 g/dL (3.4-5.0); CALCIUM 7.8 mg/dL (8.5-10.1); CREATININE 1.1 mg/dL (0.6-1.0); MAGNESIUM 1.9 mg/dL (1.8-2.4); POTASSIUM 3.9 mmol/L (3.5-5.1); TOTAL BILIRUBIN 0.4 mg/dL (<0.1-1.0); TOTAL PROTEIN 5.7 g/dL (6.4-8.2)
[2019-10-22 16:50] VITALS: BP 93/52
[2019-10-22 18:58] VITALS: BP 101/49
--- NOTE | 2019-10-23 02:15 | NUR ---
assumed care at approx 1900 evening 10/21. pt alert and oriented x4, pleasant and cooperative. pt denied complaints. pt took hs meds with water tolerating well. pt assisted up to bathroom with standby assist. pt appears to be sleeping soundly with hourly rounding. bed alarm on and call light in reach. will continue to monitor.
[2019-10-23 06:55] LABS: HEMATOCRIT 38.9 % (37.0-47.0); HEMOGLOBIN 12.9 gm/dL (12.0-15.0); MCH 31.2 pg (26.0-34.0); MCHC 33.3 g/dL (28.0-37.0); MCV 93.8 fL (80.0-100.0); RBC 4.15 mil/uL (4.20-5.00); RDW 14.1 % (10.5-14.5); WBC 9.5 thou/uL (4.0-11.0)
[2019-10-23 07:08] LABS: CALCIUM 8.4 mg/dL (8.5-10.1); CREATININE 0.9 mg/dL (0.6-1.0); MAGNESIUM 2.1 mg/dL (1.8-2.4); POTASSIUM 3.5 mmol/L (3.5-5.1)
[2019-10-23 08:27] VITALS: BP 124/70
--- NOTE | 2019-10-23 12:06 | NUR ---
chart review. cm visited with pt via phone call. intro to cm and dcp. she is pleasant and able to make her needs know. 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 independent prior to hospital. she residence with women who got out of long-term. had [facility] in past. will cont following as needed for dc need.
--- NOTE | 2019-10-23 15:56 | NUR ---
ASSUMED CARE OF PT AT 0700. PT IS A&OX4 AND VITAL SIGNS ARE STABLE. VIDEO SWALLOW STUDY ORDERD, PER ST AT PT REQUEST DIET CHANGED AND GI CONSULTED. DENIES PAIN AND PARTICIPATED IN SCHEDULED THERAPIES. FALL PRECAUTIONS IN PLACE, NURSING WILL CONTINUE TO MONITOR.
[2019-10-23 19:54] VITALS: BP 98/54
--- NOTE | 2019-10-24 02:31 | NUR ---
ASSUMED CARE AROUND 1900, PT A&O X 4, NO ACUTE CHANGES NOTED. VSS, O2 ON RA. PT DENIED ANY PAIN OR DISCOMFORT DURING SHIFT. MEDS GIVEN PER ORDERS, TOLERATED WELL. CONTINENT OF B&B, LAST BM 10/22/19. MIN ASSIST X 1 GAIT BELT. PT SLEEPING, CALL LIGHT WITHIN REACH, WILL CONTINUE TO MONITOR PER POC.
[2019-10-24 07:29] VITALS: BP 107/58
--- NOTE | 2019-10-24 10:36 | NUR ---
hh list choice and vendor form completed, gave to bedside nurse to give to sister chacha and place form on pt chart.
--- NOTE | 2019-10-24 13:24 | HC ---
[facility] [place] [address] CONSULTATION Name: BHANU MAS Room #: 501-A [facility] IN ..#: [id number] Admission: 10/20/19 Attend Phys: Bg Lundberg MD Discharge: Date of : 42 Report #: [id number] THIS REPORT FOR: cc: Omi Grigsby MD,Omi Vale,Venu Butler. PhD ~ CC: Omi Lundberg DATE OF SERVICE: 10/21/2019 NEUROBEHAVIORAL STATUS EXAM ATTENDING PHYSICIAN: Bg Lundberg MD SUPERVISOR SECURITIES VAULT: Venu Vale, PhD CLINICAL PRESENTATION: The patient is a 79-year-old female, admitted to the rehabilitation unit for comprehensive inpatient rehabilitation program. She was initially admitted to the [facility] on 10/15/2019 with increased shortness of breath and a cough. She was diagnosed with an acute hypoxic respiratory failure secondary to acute systolic congestive heart failure. Her assessment on admission to the rehab unit is medical complexity with generalized debilitation, initial acute systolic heart failure with an ejection fraction of 35-40%, coronary artery disease status post LAD stenting, history of asthma with dyspnea, ischemic cardiomyopathy, acute respiratory failure that has resolved, hypertension, hyperlipidemia and scoliosis. A complete description of her medical condition and history can be found in her medical record. Neuropsychological consultation was requested to provide assistance in the assessment of cognitive and emotional status and to provide recommendations and services. 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 She is a college graduate. The patient has suffered recent losses that include a nephew who approximately 3 weeks ago and a close friend who had about a month ago from COVID-19. She stated the close friend had had Alzheimer's disease. She had had a frequent contact with her nephew and the reason for his is described as uncertain, although he had a substance abuse disorder. TECHNIQUES UTILIZED: Clinical interview, review of medical records, staff consultation and behavioral observation, mini mental status exam 2 standard version and clock drawing. EXAMINATION FINDINGS: The patient was alert and cooperative with the [facility] [address] [place] [address] CONSULTATION Name: CHACEBHANU M Room #: 501-A [facility] IN [facility]#: [id number] Admission: 10/20/19 Attend Phys: Bg Lundberg MD Discharge: Date of : 42 Report #: [id number] assessment. She accurately described the reason for her admission. She indicated having shortness of breath and severe fatigue that preceded her hospitalization. Current symptoms include tiredness and fatigue, shortness of breath. She reports her sleep as improving. Appetite is described as within normal limits. Energy level is poor. Subjective anxiety and subtle symptoms of depression are likely given the recent losses. She does not report difficulty with word finding or memory. Her performance on the MMSE 2 brief version was 16 of 16 which is within normal limits. The MMSE 2 standard version was a raw score of 29 of 30 which is within normal limits. She was 4/5 for serial 7's. All other aspects of cognitive functioning are within normal limits and do not suggest a cognitive disorder. There is likely to be a mild level of depression given recent environmental losses. DIAGNOSTIC IMPRESSION: Mild depression as an adjustment to recent loss. RECOMMENDATIONS: Cognitive functioning appears within normal limits. Continued verbal praise and complements in regard to participation in therapies. Her emotional status will likely improve upon return to normal routine and schedule. Thank you very much for allowing me to provide the consultation on this patient. <ELECTRONICALLY SIGNED> By: Venu Vale, PhD 10/24/19 1324 1549 02 Venu Vale, PhD /nt
[2019-10-24 14:49] VITALS: BP 107/58
--- NOTE | 2019-10-24 16:54 | NUR ---
FAXED REFERRAL TO [facility] RECEIVED CONFIRMATION AND SPOKE WITH JESSE IN INTAKE SHE RECEIVED REFERRAL AND WILL REVIEW. DP TO FOLLOW.
[2019-10-24 19:15] VITALS: BP 93/52
--- NOTE | 2019-10-24 20:50 | NUR ---
ASSUMED CARE OF PT AT 0700. PT IS A&OX4 AND VITAL SIGNS ARE STABLE. PT DENIES PAIN AND PARTICIPATED IN SCHEDULED THERAPIES. PT REPORTS DRY COUGH, MANAGED WITH PRN COUGH DROPS. EGD PLANNED FOR 10/25 PRIOR TO D/C, PLAVIX AND ASPIRIN ON HOLD AT THIS TIME. US ORDERED TO RIGHT GROIN, RESULTS PENDING. FALL PRECAUTIONS IN PLACE AND NURSING WILL CONTINUE TO MONITOR.
--- NOTE | 2019-10-25 01:50 | NUR ---
PT ALERT AND ORIENTED X 4. AMB TO BR WITH GAIT BELT AND ASSIST X 1 WITHOUT DIFFICULTY. RIGHT GROIN WITH LARGE BRUISE. DURING ULTRASOUND OF RIGHT GROIN, PT C/O PAIN IN HER UPPER RIGHT BACK. STATED PAIN WAS THE WORST PAIN SHE HAS EVER HAD. AREA MASSAGED AND EMOTIONAL SUPPORT PROVIDED TO PT. SPENT TIME WITH PT AND PAIN SUBSIDED SHORTLY AFTER IT STARTED. PT HAVING NUMEROUS SOFT STOOLS. LOSARTAN HELD AT HS SINCE BP WAS 93/52. BED ALARM ON FOR SAFETY. PT APPEARS TO BE SLEEPING ON HOURLY ROUNDS.
[2019-10-25] MEDS ORDERED: COZAAR 25 MG TA25 M1 PO (08:32)
[2019-10-25 09:00] VITALS: BP 107/61
[2019-10-25 10:15] VITALS: BP 107/58
--- NOTE | 2019-10-25 17:49 | NUR ---
ASSUMED CARE OF PT AT 0700. PT IS A&OX4 AND VITAL SIGNS ARE STABLE. PT CONTINUES TO REPORT FREQUENT SOFT FORMED STOOLS EACH SHIFT, BOWEL MEDICAITONS HELD. ORDERS FOR EGD ON 10/25, BLOOD THINNERS HELD AT THIS TIME. ORDERS FOR PT TO BE NPO AT MIDNIGHT BUT OKAY FOR PT TO HAVE WATER UNTIL 0600 PER J2EE CONSULTANT PETE GARCIA. FALL PRECAUTIONS IN PLACE AND NURSING WILL CONTINUE TO MONITOR.
[2019-10-25 19:15] VITALS: BP 107/61
--- NOTE | 2019-10-26 00:24 | NUR ---
PT ALERT AND ORIENTED X 4. MODIFIED INDEPENDENT IN ROOM WITHOUT DIFFICULTY. PT DENIES PAIN OR DISCOMFORT. NPO AFTER MIDNIGHT FOR EGD. PT APPEARS TO BE SLEEPING ON HOURLY ROUNDS.
[2019-10-26 07:38] VITALS: BP 95/60
--- NOTE | 2019-10-26 08:06 | NUR ---
ASSUMED CARE AT 0700. PATIENT IS ALERT AND ORIENTED X4. PATIENT VALENTINO'S, BORING MACHINE OPERATOR ARE EQUAL. LUNGS ARE CLEAR. ABD IS SOFT WITH BSX4. PATIENT IS NPO FOR EGD MID-DAY TODAY. PLAN D/C TO HOME LATER THIS AFTERNOON. PATIENT IS MOD/I IN ROOM. FALL AND SAFETY PROTOCOLS IN PLACE. DENIES PAIN AT THIS TIME. CONTINUES TO PROGRESS TOWARDS D/C GOALS . WILL CONTINUE TO MONITER.
[2019-10-26] MEDS ORDERED: CLOPIDOGREL75 MG PO (10:12)
[2019-10-26] MEDS ORDERED: COLACE100 MG PO (10:12)
[2019-10-26] MEDS ORDERED: K-DUR10 MEQ PO (10:12)
[2019-10-26] MEDS ORDERED: TYLENOL325 MG PO (10:12)
[2019-10-26] MEDS ORDERED: ASPIR 8181 MG PO (10:12)
[2019-10-26] MEDS ORDERED: COZAAR 25 MG TA25 M1 PO (10:12)
[2019-10-26] MEDS ORDERED: CARVEDILOL3.125 MG PO (10:12)
[2019-10-26] MEDS ORDERED: VSL#3 CAPSULE1 EACH PO (10:12)
[2019-10-26] MEDS ORDERED: TORSEMIDE10 MG PO (10:12)
[2019-10-26] MEDS ORDERED: LIPITOR40 MG PO (10:12)
[2019-10-26 11:24] VITALS: BP 107/58
--- NOTE | 2019-10-26 14:51 | NUR ---
1400 PATIENT D/C'D TO GI LAB FOR EGD. PATIENT LEFT UNIT IN GOOD CONDITION PER W/C WITH ALL OF HER BELONGINGS AND CELL PHONE. SISTER MICHAEL WILL BE PICKING HER UP AFTER THE PROCEDURE. PRE-OP HOLDING NOTIIFED. PRE-OP NURSE VERBALIZED UNDERSTANDING. SIGNED CONSENT AND COVID-19 LAB RESULTS WENT WITH PATIENT TO GI LAB.
--- NOTE | 2019-10-26 16:10 | NUR ---
PT DISCHARGING TODAY TO HOME WITH [facility] FAXED DC ORDERS/SUMMARY SPOKE WITH JESSE IN INTAKE SHE RECEIVED ORDERS AND WILL NOTIFY PT TIME OF VISITS.
== END 2019-10-26 13:43 | disposition home health service (06) | DRG 947 ==
PROVIDERS: Internal Medicine; Nurse Practitioner Family; ADMIT Physical Medicine & Rehabilitation
DX: R53.81 Other malaise (principal); J96.01 Acute respiratory failure with hypoxia; I50.23 Acute on chronic systolic (congestive) heart failure; I11.0 Hypertensive heart disease with heart failure; I25.10 Atherosclerotic heart disease of native coronary artery without angina pectoris; I25.5 Ischemic cardiomyopathy; M41.9 Scoliosis, unspecified; K21.9 Gastro-esophageal reflux disease without esophagitis; J45.909 Unspecified asthma, uncomplicated; J44.9 Chronic obstructive pulmonary disease, unspecified; E78.5 Hyperlipidemia, unspecified; Z20.828 Contact with and (suspected) exposure to other viral communicable diseases; R13.10 Dysphagia, unspecified; Z88.2 Allergy status to sulfonamides; Z88.8 Allergy status to other drugs, medicaments and biological substances; Z80.0 Family history of malignant neoplasm of digestive organs; Z86.010 Personal history of colon polyps; Z95.5 Presence of coronary angioplasty implant and graft; Z79.82 Long term (current) use of aspirin; Z79.899 Other long term (current) drug therapy
CPT/HCPCS: 10112

== ENCOUNTER → 2019-10-26 | Outpatient (CLI) | payer OTHER, BC ==
[~2019-10-26] MED LIST changes: +CLARITIN10 MG PO; +COLACE100 MG PO; +PREDNISONE 20 M20 MG PO; +TYLENOL325 MG PO; +VSL#3 CAPSULE1 EACH PO
--- NOTE | 2019-10-27 08:27 | P ---
[facility] [place] [address] PROCEDURE REPORT Name: BHANU MAS Room #: PRE [facility].#: [id number] Admission: Attend Phys: Dagoberto Sarmiento Discharge: Date of : 42 Report #: [id number] THIS REPORT FOR: cc: Omi Grigsby MD, Christopher B. MD McElhinney, Christian C. MD ~ CC: David Pace MD [facility] DATE OF SERVICE: 10/26/2019 PROCEDURE PERFORMED: Upper endoscopy with esophageal dilation. HISTORY OF PRESENT ILLNESS: The patient is a 79-year-old female with history of dysphagia. She had a recent cardiac stent placement, was having symptoms of chest pain and left upper arm discomfort. The patient was then admitted to rehab for further therapy and was discharged earlier today. We saw the patient in consultation during the rehabilitation visit. She was taking aspirin and Plavix, this has now been held for the last day. Plan is for upper endoscopy with dilation. DESCRIPTION OF PROCEDURE: The risks and benefits of the procedure were explained to the patient, those risks including but not limited to bleeding, perforation and the risk of sedation. She understood these risks and gave informed consent. Sedation was given using propofol per Anesthesia. Next, using a standard Olympus upper endoscope, the scope was placed in the patient's mouth and advanced under direct vision through the esophagus, stomach and into the second portion of the duodenum. Overall, the esophagus was normal other than being mildly tortuous and somewhat dilated. No evidence of stricture, no evidence of esophagitis. Upon entering the stomach, there appears to be a large hiatal hernia. Overall, the gastric mucosa was normal. The pylorus was normal and patent. The duodenal bulb, first and second portion were all normal. The scope was brought back up into the patient's stomach and a Savary guidewire was inserted through the scope, leaving the guidewire in place as the scope was then withdrawn. Next, a 51-Frisian Savary dilation of the esophagus was performed without difficulty. The wire and dilator were removed. The scope was reintroduced into the patient's stomach. There was no evidence of mucosal tear after dilation. The scope was then withdrawn and the procedure terminated. The patient tolerated the procedure well. IMPRESSION: Suspected large hiatal hernia, which may be contributing to her symptoms of dysphagia. No evidence of stricture. Normal appearing esophagus. RECOMMENDATIONS: [facility] [address] [place] [address] PROCEDURE REPORT Name: BHANU MAS Room #: PRE [facility] [place]#: [id number] Admission: Attend Phys: Dagoberto Sarmiento Discharge: Date of : 44 Report #: [id number] 1. Observe the patient post-dilation. 2. If the patient gets no benefit from dilation, would recommend an upper GI for further evaluation of possible large hiatal hernia, may need to also consider esophageal manometry test. Thank you for allowing me to participate in her care. <ELECTRONICALLY SIGNED> By: Dagoberto Bonilla MD 10/27/19 0827 [id number] Dagoberto Bonilla MD /nt
== END ==
LOC: GI 14:01
DX: R13.10 Dysphagia, unspecified (principal); I11.0 Hypertensive heart disease with heart failure; I50.9 Heart failure, unspecified; J45.909 Unspecified asthma, uncomplicated; I25.10 Atherosclerotic heart disease of native coronary artery without angina pectoris; Z79.899 Other long term (current) drug therapy; Z98.890 Other specified postprocedural states
CPT/HCPCS: 62110; 62900

== ENCOUNTER → 2019-11-24 | Outpatient (CLI) | payer OTHER, BC | LOC: SJCVC 11:22 | PROVIDERS: ATTEND Internal Medicine | DX: R94.31 Abnormal electrocardiogram [ECG] [EKG] (principal); I25.10 Atherosclerotic heart disease of native coronary artery without angina pectoris; I50.22 Chronic systolic (congestive) heart failure; E78.5 Hyperlipidemia, unspecified; I10 Essential (primary) hypertension; J45.30 Mild persistent asthma, uncomplicated ==

== ENCOUNTER → 2019-11-27 | Outpatient (CLI) | payer OTHER, BC | LOC: CAT 10:32 | DX: R91.8 Other nonspecific abnormal finding of lung field (principal); J98.4 Other disorders of lung ==

== ENCOUNTER → 2020-01-04 | Outpatient (CLI) | payer OTHER, BC | LOC: RAD 09:31 | PROVIDERS: ATTEND Internal Medicine | DX: Z12.31 Encounter for screening mammogram for malignant neoplasm of breast (principal) ==

== ENCOUNTER → 2020-03-08 | Outpatient (CLI) | payer OTHER, BC | LOC: SJCVCIMAG 09:28 | PROVIDERS: ATTEND Internal Medicine | DX: R94.31 Abnormal electrocardiogram [ECG] [EKG] (principal); I08.2 Rheumatic disorders of both aortic and tricuspid valves; I25.10 Atherosclerotic heart disease of native coronary artery without angina pectoris; I11.0 Hypertensive heart disease with heart failure; I50.20 Unspecified systolic (congestive) heart failure; E78.5 Hyperlipidemia, unspecified; J45.30 Mild persistent asthma, uncomplicated; Z98.61 Coronary angioplasty status ==

== ENCOUNTER → 2020-07-03 | Outpatient (CLI) | payer OTHER, BC | LOC: RAD 11:23 | PROVIDERS: ATTEND Internal Medicine | DX: J98.11 Atelectasis (principal) ==

== ENCOUNTER → 2020-07-03 | Outpatient (CLI) | payer OTHER, BC | LOC: SJCVC 09:42 | PROVIDERS: ATTEND Internal Medicine | DX: R94.31 Abnormal electrocardiogram [ECG] [EKG] (principal); I25.10 Atherosclerotic heart disease of native coronary artery without angina pectoris; I10 Essential (primary) hypertension; E78.5 Hyperlipidemia, unspecified; J45.30 Mild persistent asthma, uncomplicated; R55 Syncope and collapse; Z79.82 Long term (current) use of aspirin; Z79.899 Other long term (current) drug therapy; Z88.2 Allergy status to sulfonamides; Z88.1 Allergy status to other antibiotic agents ==

== ENCOUNTER → 2020-07-04 | Outpatient (CLI) | payer OTHER, BC | LOC: LAB 14:18 | PROVIDERS: ATTEND Internal Medicine | DX: R06.02 Shortness of breath (principal); Z20.822 Contact with and (suspected) exposure to COVID-19 ==

== ENCOUNTER 2020-07-09 06:34 | Observation (INO) | payer OTHER, BC ==
[~2020-07-09] VITALS: Ht 152.4 cm; Wt 49.9 kg
[2020-07-09] VITALS (15 sets, daily range): BP systolic 115–185; BP diastolic 54–97
[2020-07-09] MEDS ORDERED: BREZTRI AEROS10.7 GM INH (07:24)
[2020-07-09] MEDS ORDERED: CLOPIDOGREL75 MG PO (10:04)
--- NOTE | 2020-07-09 10:05 | CATHLAB ---
[facility] [place] [address] INVASIVE PROCEDURE REPORT Name: BHANU MAS Room #: 206-P [facility]..#: [id number] Admission: 07/09/20 Attend Phys: Rocky Pace MD, Discharge: Date of : 44 Report #: [id number] THIS REPORT FOR: cc: Omi Grigsby MD, Christopher B. MD Lundgren, Craig H. MD [facility] ~ APPROVED REPORT Study performed: 07/09/2020 07:33:30 Patient Details Patient Status: Out-Patient Room #: The patient is a 80 year-old female Event Personnel Rocky Pace Forest And Conservation Worker, Sandra Carrizales RN RN, Ray Wright RTR Monitor, Ally Hernandez RTR, JUAN M Scrub, Laura Razo RTR Senior Sales Consultant Procedures Performed Art Access - R femoral artery* Left Heart Cath w/or w/o Coronaries [id number] [facility] MITCH Place w/wo Plasty Single LAD 744209 00926 Initial Mod Sed Same Phys/QHP Gr5y 522253 48005 Mod Sed Same Phys/QHP Ea 706930 Hemostasis w/ Mynx Indication Chest pain Procedure Narrative The patient was brought urgently to the Cardiac Catheterization Laboratory and was prepped and draped in a sterile manner. The Right Groin^ was infiltrated with 1% Lidocaine subcutaneous anesthesia. A PINNACLE 6FR Sheath #[id number] sheath was inserted into the RFA^. Coronary angiography was performed using coronary diagnostic catheters. The right coronary system was accessed and visualized with a JR4 catheter. The left coronary system was accessed and visualized with a JL4 catheter. The left ventricle was accessed and visualized with a PIGTAIL catheter. Closure device was deployed with a 6 Fr MYNXGRIP 6/7F #[id number]. The patient tolerated the procedure well and there were no complications associated with the procedure. There was no hematoma. Intraoperative Conscious Sedation Sedation start time: 755 Case end Time: [address] [address] INVASIVE PROCEDURE REPORT Name: BHANU MAS Room #: 206-P [facility]#: [id number] Admission: 07/09/20 Attend Phys: Rocky Pace, Discharge: Date of : 42 Report #: [id number] Fentanyl 100 mcg Versed 1.5 mg Fluoro Time: 9.28 minutes Dose: DAP 4314.90 cGycm2 588 mGy Contrast Type and Amount: Omnipaque 220 ml Coronary Angiography The patient's coronary anatomy is left dominant. Diagnostic Cath Left Main Normal left main LAD Severe intrastent LAD stenosis of 95-99% Diagonal 1 Normal moderate D1 Diagonal 2 Moderately large normal D2 Circumflex Dominant circumflex OM1 High arising OM1 with 30-40% plaquing Right Coronary Small nondominant right coronary Left Ventriculography The left ventricle is normal in size with abnormal contractility. The left ventricular ejection fraction is estimated to be 50%. Left ventricular wall motion abnormalities are present. There is no mitral insufficiency. Distal anterior lateral wall hypokinesis. Hemodynamics The aortic pressure is 180/45 mmHg with a mean of 99 mmHg. The left ventricular pressure is 149/3 mmHg with a mean of mmHg. The left ventricular end diastolic pressure is 17 mmHg. There was no gradient across the aortic valve upon pullback. PCI Technique Lesion Anticoagulation was achieved with Heparin, Integrilin. Patient was preloaded with Plavix. Percutaneous coronary intervention was performed on the proximal left anterior descending artery segment. The lesion stenosis prior to intervention was 99% with ML 3 flow. A LAUNCHER 6FR EBU 3.5 #[id number] Guide Catheter was used to engage the ostium. A Luge Wire .014 x 182CM #[id number] Interventional Guidewire was used to cross the lesion. BALLOON DILATION A Balloon catheter Euphora RX 2.5 x 12 #[id number] was inserted and inflated up to 6.00atm for 4seconds. Additional Inflation: 4.00atm for 6seconds. Additional Inflation: 18.00atm for 36seconds. There was considerable "pistoning" of the 3.0 stent, consequently migrating slightly distally in the vessel and not completely covering the [facility] [address] [place] [address] INVASIVE PROCEDURE REPORT Name: BHANU MAS Room #: 206-P [facility] M.RVera#: [id number] Admission: 07/09/20 Attend Phys: Rocky Pace, Discharge: Date of : 44 Report #: [id number] stenosis at the time of deployment. This is the reason for using a 3.25 x 8 mm stent just proximal to this in sequence. STENT DEPLOYMENT A drug-eluting stent RESOLUTE SHELLY RX 3.0 X 15 #[id number] was inserted and inflated up to 14.00atm for 31seconds. A 3.25 X8 CANNON XIENCE UYEN STENT WAS PLACED, 14 THU FOR 27 SECS POST STENT DEPLOYMENT BALLOON DILATION A Balloon catheter XIENCE UYEN RX 3.25 X 8 #[id number] was inserted and inflated up to 14.00atm for 24seconds. Additional Inflation: 20.00atm for 34seconds. Additional Inflation: 20.00atm for 12seconds. Final angiography reveals 0 % stenosis with ML 3 flow. Conclusion 1. Mild left ventricular dysfunction with distal anterolateral wall hypokinesis. Ejection fraction 50%. 2. Severe proximal LAD intrastent stenosis, treated in sequence with 3.25mm x 8 Xience, then 3.0 x 15 Resolute stent, both post-dilated to 3.4mm 3. Mild dominant circumflex disease 4. Small nondominant right coronary, normal Recommendations Daily ASA with Plavix for at least one year <ELECTRONICALLY SIGNED> By: Rocky Pace MD, [facility] 07/09/205 04 04 Rocky Pace MD, [facility] /INF
--- NOTE | 2020-07-09 11:37 | EKG ---
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[facility] : 1940 Requested By: Rocky Pace Order Number: [id number] MD: Moshe Jason Measurements Intervals [place] Rate: 68 P: 49 MI: 162 QRS: 2 QRSD: 97 T: 70 QT: 414 QTc: 441 Interpretive Statements Sinus rhythm Probable left atrial enlargement Anterior infarct, age indeterminate Compared to ECG 10/20/2019 08:00:07 T-wave abnormality no longer present Myocardial infarct finding still present Electronically Signed On 07-09-2020 11:37:16 [employer] by Moshe Jason [email or web address] <ELECTRONICALLY SIGNED> By: Moshe Jason MD, [facility] 07/09/20 1137 1100 1100 Moshe Jason MD, FAC /EPI
--- NOTE | 2020-07-09 19:38 | NUR ---
PT CARE ASSUMED AT 0915. ASSESSMENTS CHARTED. MEDICATIONS CHARTED.RFA IV. RT GROIN, MYNX;2 STENTS PLACED INSIDE A PREVIOUS STENT. HEMOSTASIS AT 0900; BEDREST UNTIL 1200, COMPLETE. UP AD KEITH.
[2020-07-10] VITALS (7 sets, daily range): BP systolic 65–147; BP diastolic 41–77
--- NOTE | 2020-07-10 04:42 | NUR ---
ASSUMED PATIENT CARE AT 1845. VITAL SIGNS STABLE WITH PATIENT HAVING NO COMPLAINTS OF PAIN (CHEST OR OTHERWISE) OR NAUSEA. FULLY ORIENTED, PATIENT IS ABLE TO CALL APPROPRIATELY FOR HER NEEDS AND PARTICIPATE FULLY IN CARE. CARDIAC CATH SITE REMAINS CLEAN, DRY, AND INTACT WITH NO SIGNS OF HEMATOMA. PATIENT IS ANXIOUS FOR POTENTIAL DISCHARGE SOON. CONTINUE PLAN OF CARE.
[2020-07-10 05:19] LABS: HEMATOCRIT 39.4 % (37.0-47.0); MCH 31.7 pg (26.0-34.0); MCV 96.2 fL (80.0-100.0); RBC 4.1 mil/uL (4.20-5.00); RDW 12.4 % (10.5-14.5); WBC 7.3 thou/uL (4.0-11.0)
[2020-07-10 05:44] LABS: ALBUMIN 3.2 g/dL (3.4-5.0); CALCIUM 8.7 mg/dL (8.5-10.1); CREATININE 1.1 mg/dL (0.6-1.0); POTASSIUM 4.2 mmol/L (3.5-5.1); TOTAL BILIRUBIN 0.5 mg/dL (0.2-1.0); TOTAL PROTEIN 5.4 g/dL (6.4-8.2); TROPONIN-I 0.19 ng/mL (<0.06)
--- NOTE | 2020-07-10 07:27 | EKG ---
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1940 Requested By: Rocky Pace Order Number: [id number] MD: Moshe Jason Measurements Intervals [place] Rate: 65 P: 63 NC: 154 QRS: -7 QRSD: 93 T: 96 QT: 406 QTc: 423 Interpretive Statements Sinus rhythm Probable left atrial enlargement Anterior infarct, age indeterminate Compared to ECG 07/09/2020 11:00:48 No significant changes Electronically Signed On 07-10-2020 7:27:39 [employer] by Moshe Jason [email or web address] <ELECTRONICALLY SIGNED> By: Moshe Jason MD, [facility] 07/10/20726 2 2 Moshe Jason MD, FACC /EPI
--- NOTE | 2020-07-10 09:09 | D ---
[facility] [place] [address] DISCHARGE SUMMARY Name: BHANU MAS Room #: 206-P [facility] M..#: [id number] Admission: 07/09/20 Attend Phys: Rocky Pace MD, Discharge: Date of : 42 Report #: [id number] THIS REPORT FOR: cc: Omi Grigsby MD, Christopher B. MD Lundgren,Rocky Powers MD FAC ~ DISCHARGE DIAGNOSES: 1. Unstable angina. 2. High-grade proximal intrastent LAD disease, successfully re-stented with a 3.0 x 15 mm and proximal to this, a 3.25 x 8 mm medicated stents, postdilated to 3.4 mm. 3. Mild ischemic cardiomyopathy. 4. Dyslipidemia. 5. Asthma. 6. Recent syncope. HISTORY OF PRESENT ILLNESS: The patient is a 80-year-old with hypertension, dyslipidemia, longstanding asthma and heart failure in 10/2019, at which time, she was found to have high-grade proximal LAD disease, treated with stenting with a 3.0 x 12 mm Resolute medicated stent. She now presents with syncope and recurrent exertional breathlessness with midsternal chest discomfort. She is admitted for further evaluation including coronary angiography. HOSPITAL COURSE: The patient underwent a coronary angiography, the results of which can be found under separate heading and dictation. In summary, left ventricular systolic function substantially improved following her 10/2019 stenting procedure. She was found to have very high-grade intrastent proximal LAD disease. This was ballooned and re-stented with a 3.0 x 15 mm Resolute stent and proximal to this, a 3.25 x 8 mm Xience stent. Both stents were dilated to close to 3.4 mm with a noncompliant balloon. She was treated with heparin, Integrilin, aspirin and Plavix in the periprocedural setting. She had excellent groin hemostasis at the time of discharge. DISCHARGE MEDICATIONS: Include aspirin 81 mg daily, atorvastatin 40 mg daily, Symbicort 2 puffs a day, carvedilol 3.125 mg twice daily, Flonase 1 spray into each nostril daily, Neurontin 200 mg twice daily, Singulair 10 mg daily, omeprazole 20 mg daily and inhalers. Her medicines were reconciled. Add Plavix 75 mg daily for 1 year course. DISCHARGE ACTIVITY: As instructed post-catheterization. DISCHARGE DIET: Heart healthy diet. DISCHARGE FOLLOWUP: With myself as previously arranged in 1 month. Discharge arrangements were made for an outpatient echocardiogram [place] [address] DISCHARGE SUMMARY Name: BHANU MAS Room #: 206-P [facility] M.R.#: [id number] Admission: 07/09/20 Attend Phys: Rocky Pace MD, Discharge: Date of : 42 Report #: [id number] Recent lipid profile: Total cholesterol 124, LDL 41, HDL 59, triglycerides 122. DISCHARGE CONDITION: Stable and improved. Follow up with Dr. David Grigsby as previously arranged. <ELECTRONICALLY SIGNED> By: Rocky Pace MD, FACC 07/10/20 0909 0947 1008 Rocky Pace MD, FACC /nt
--- NOTE | 2020-07-10 10:32 | NUR ---
PT. HAS DISCHARGE ORDERS BUT WHEN AMBULATE TO COMMODE WITH TECH SHE BECAME WEAK AD HER BP WAS 89/45. PUT HER BACK IN BED AND WILL DO ORTHOSTATICS ON HER SOON TO ENSURE SHE WILL BE STABLE ON HER FEET AND OVERALL.
== END 2020-07-10 17:29 | disposition home or self-care (01) ==
LOC: CATH 06:34 → 2N 09:30 → CATH 09:31 → 2N 09:31 → CATH 12:04 → 2N 07-10 17:29
PROVIDERS: ADMIT Internal Medicine; ATTEND Internal Medicine
DX: I20.0 Unstable angina (principal); I25.5 Ischemic cardiomyopathy; E78.5 Hyperlipidemia, unspecified; J45.909 Unspecified asthma, uncomplicated; R55 Syncope and collapse; Z79.82 Long term (current) use of aspirin; Z79.899 Other long term (current) drug therapy

== ENCOUNTER → 2020-07-26 | Outpatient (CLI) | payer OTHER, BC ==
[~2020-07-26] MED LIST changes: +BREZTRI AEROS10.7 GM INH
== END ==
LOC: SJCVCIMAG 07:20
PROVIDERS: ATTEND Internal Medicine
DX: I65.23 Occlusion and stenosis of bilateral carotid arteries (principal); I08.3 Combined rheumatic disorders of mitral, aortic and tricuspid valves; I25.10 Atherosclerotic heart disease of native coronary artery without angina pectoris; I10 Essential (primary) hypertension; E78.5 Hyperlipidemia, unspecified; J45.40 Moderate persistent asthma, uncomplicated; Z95.5 Presence of coronary angioplasty implant and graft; Z88.8 Allergy status to other drugs, medicaments and biological substances; Z79.82 Long term (current) use of aspirin; Z79.899 Other long term (current) drug therapy; Z82.49 Family history of ischemic heart disease and other diseases of the circulatory system

== ENCOUNTER → 2020-09-19 | Outpatient (CLI) | payer OTHER, BC | LOC: RAD 11:54 | PROVIDERS: ATTEND Internal Medicine | DX: K59.00 Constipation, unspecified (principal) ==

== ENCOUNTER 2020-11-21 14:38 | Observation (INO) | payer OTHER, BC ==
[2020-11-21] VITALS (10 sets, daily range): BP systolic 128–150; BP diastolic 52–88
[2020-11-21 16:22] LABS: HEMATOCRIT 39.1 % (37.0-47.0); HEMOGLOBIN 12.9 gm/dL (12.0-15.0); MCHC 32.9 g/dL (28.0-37.0); MCV 97.1 fL (80.0-100.0); RBC 4.02 mil/uL (4.20-5.00); RDW 13.2 % (10.5-14.5); WBC 5.8 thou/uL (4.0-11.0)
[2020-11-21 16:30] LABS: CALCIUM 8.7 mg/dL (8.5-10.1); POTASSIUM 4.1 mmol/L (3.5-5.1)
--- NOTE | 2020-11-21 19:49 | CATHLAB ---
[facility] [place] [address] INVASIVE PROCEDURE REPORT Name: BHANU MAS Room #: 208-P [facility] M.R.#: [id number] Admission: 11/21/20 Attend Phys: Rocky Pace MD, Discharge: Date of : 42 Report #: [id number] THIS REPORT FOR: cc: Omi Grigsby MD, Christopher B. MD Lundgren, Craig H. MD [facility] ~ APPROVED REPORT Study performed: 11/21/2020 16:42:10 Patient Details Patient Status: OP Room #: The patient is a 80 year-old female Event Personnel Rocky Pace Dray Driver, Kelli Alatorre RN RN, Venessa Beltrán Monitor, Brian Zazueta RTR Scrub Procedures Performed Art Access - R femoral artery* Left Heart Cath w/or w/o Coronaries [id number] [facility] [address] Initial Mod Sed Same Phys/QHP Gr5y 644925 Hemostasis w/ Mynx Indication Chest pain Procedure Narrative The patient was brought urgently to the Cardiac Catheterization Laboratory and was prepped and draped in a sterile manner. The Right Groin^ was infiltrated with 1% Lidocaine subcutaneous anesthesia. A PINNACLE 6FR Sheath #[id number] sheath was inserted into the RFA 6f^. Coronary angiography was performed using coronary diagnostic catheters. The right coronary system was accessed and visualized with a JR4 catheter. The left coronary system was accessed and visualized with a JL4 catheter. The left ventricle was accessed and visualized with a ANGLE PIG catheter. Left ventriculogram was performed in 30 degree projection. There was no hematoma. Intraoperative Conscious Sedation Sedation start time: 1656 Case end Time: 1739 Fentanyl 25 mcg Versed 1 mg Fluoro Time: 0.50 minutes [facility] [address] [place] [address] INVASIVE PROCEDURE REPORT Name: BHANU MAS Room #: 208-P [facility] [place] ..#: [id number] Admission: 11/21/20 Attend Phys: Rocky Pace, Discharge: Date of : 42 Report #: [id number] Dose: DAP 713.30 cGycm2 83 mGy Contrast Type and Amount: Visipaque 70 ml Diagnostic Cath Left Main Normal left main LAD Widely patent proximal LAD stent with 10-20% intrastent plaquing Subtotally occluded first septal perforating branch, unchanged from previously Diagonal 1 Small first diagonal, normal Diagonal 2 Second first diagonal, normal Circumflex Dominant circumflex, angiographically normal Right Coronary Small nondominant right coronary artery Ramus Large ramus branch, angiographically normal Left Ventriculography The left ventricle is normal in size with normal contractility. The left ventricular ejection fraction is estimated to be 50-55%. Left ventricular wall motion abnormalities are present. There is no mitral insufficiency. Very mild anterior wall hypokinesis Hemodynamics The aortic pressure is 186/75 mmHg with a mean of 118 mmHg. The left ventricular pressure is 187/11 mmHg with a mean of mmHg. The left ventricular end diastolic pressure is 12 mmHg. Conclusion 1. Normal global left ventricular systolic function with minimal anterior wall hypokinesis. EF 55% 2. Normal left main 3. Widely patent proximal LAD stent with 10-20% proximal intrastent plaquing 4. Normal, dominant circumflex and ramus branches 5. The right coronary was small, nondominant and not injected <ELECTRONICALLY SIGNED> By: Rocky Pace MD, FACC 11/21/201947 47 47 Rocky Pace MD, FACC /INF
--- NOTE | 2020-11-22 01:43 | NUR ---
DR. MCLAUGHLIN AT BEDSIDE CONSENT ON THE CHART FOR PROCEDURE AT THIS TIME. PT CALLING FAMILY TO MAKE THEM AWARE OF PROCEDURE.
--- NOTE | 2020-11-22 04:37 | NUR ---
PT IS PLEASANT ALERT AND ORINENTED X4. LUNGS ARE CLEAR ON ROOM AIR. ABDOMEN IS SOFT AND FLAT. UP TO BATHROOM WITH ASSISTANCE. MYNX GROIN SITE ON RIGHT SIDE DRY AND INTACT NO HEMATOMA NOTED. DENIES ANY PAIN ISSUES. CALL LIGHT WITHIN REACH IF NEEDED.
[2020-11-22 04:45] VITALS: BP 164/60
[2020-11-22 05:03] LABS: HEMATOCRIT 38.3 % (37.0-47.0); HEMOGLOBIN 12.9 gm/dL (12.0-15.0); MCH 32.1 pg (26.0-34.0); MCHC 33.6 g/dL (28.0-37.0); MCV 95.5 fL (80.0-100.0); RBC 4.01 mil/uL (4.20-5.00); WBC 6.9 thou/uL (4.0-11.0)
[2020-11-22 07:30] VITALS: BP 149/78
--- NOTE | 2020-11-22 07:31 | EKG ---
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 : 1940 Requested By: Rocky Pace Order Number: [id number] MD: Moshe Jason Measurements Intervals [place] Rate: 84 P: 81 [place]: 196 QRS: 22 QRSD: 101 T: 183 QT: 380 QTc: 450 Interpretive Statements Sinus rhythm Anteroseptal infarct, age indeterminate Lateral leads are also involved Compared to ECG 07/10/2020 07:03:59 No significant changes Electronically Signed On 11-22-2020 7:30:58 CDT by Moshe Jason [email or web address] <ELECTRONICALLY SIGNED> By: Moshe Jason MD, [facility] [address] 13 13 Moshe Jason MD, [facility] /EPI
[2020-11-22] MEDS ORDERED: CLOPIDOGREL75 MG PO (08:15)
[2020-11-22 10:08] VITALS: BP 149/78
--- NOTE | 2020-11-22 10:31 | NUR ---
PT ALERT AND ORIENTED. VSS. DENIED HAVING PAIN OR DISCOMFORT. VSS. RIGHT GROIN C/D/I. NO HEMATOMA NOTED. ORDERS GIVEN TO DISCHARGE PT TO HOME. DISCHARGE INSTRUCTIONS GIVEN TO PT. PT VERBERLISED UNDERSTANDING.
== END 2020-11-22 10:45 | disposition home or self-care (01) ==
LOC: SJCVC 14:38 → CATH 14:38 → 2N 17:54
PROVIDERS: ADMIT Internal Medicine; ATTEND Internal Medicine
DX: I25.10 Atherosclerotic heart disease of native coronary artery without angina pectoris (principal); E78.5 Hyperlipidemia, unspecified; I11.9 Hypertensive heart disease without heart failure; I43 Cardiomyopathy in diseases classified elsewhere; Z88.1 Allergy status to other antibiotic agents; Z88.2 Allergy status to sulfonamides; Z90.49 Acquired absence of other specified parts of digestive tract

== ENCOUNTER → 2020-11-27 | Outpatient (CLI) | payer OTHER, BC ==
[~2020-11-27] VITALS: Ht 152.4 cm; Wt 47.6 kg
[~2020-11-27] MED LIST changes: +ASA81BEC PO; -MULTIVITAMINS1 EAC7 PO; +PROAIR HFA8.5 GM INH; +SUPER THERAVIT1 EACH PO
--- NOTE | ~2020-11-27 | P ---
[facility] [place] [address] PROCEDURE REPORT Name: BHANU MAS Room #: REG [facility].#: [id number] Admission: 11/27/20 Attend Phys: Dagoberto Sarmiento Discharge: Date of : 42 Report #: [id number] THIS REPORT FOR: cc: Omi Grigsby MD, Christopher B. MD McElhinney, Christian C. MD ~ DOC #: [id number] cc: MD Dagoberto Pickens MD DATE OF SERVICE: 11/27/2020 PROCEDURE PERFORMED: Colonoscopy with biopsies. HISTORY OF PRESENT ILLNESS: The patient is a 80-year-old female seen in the office on 10/29/2020 for a change in bowel habits, previous history of constipation, lately has been having more intermittent diarrhea and fecal urgency. Denies any blood in her stools. Plan is for colonoscopy. DESCRIPTION OF PROCEDURE: The risks and benefits of the procedure were explained to the patient, those risks including but not limited to bleeding, perforation and the risk of sedation. She understood these risks and gave informed consent. Sedation was given using propofol per anesthesia. Next, a digital rectal exam was initially performed, which was normal. Next, using a standard Olympus colonoscope, the scope was placed in the patient's anus and advanced under direct vision to the cecum. The overall prep was good. The cecum and ileocecal valve were normal in appearance. Ascending, transverse and descending colon were normal. A few small scattered diverticula were noted in the sigmoid colon. No evidence of inflammation, otherwise normal. Random colon biopsies were obtained today to rule out the possibility of microscopic colitis. The rectal mucosa was normal. On retroflexion, no abnormalities were noted. The scope was then withdrawn and the procedure terminated. The patient tolerated the procedure well. IMPRESSION: 1. Mild sigmoid diverticulosis. 2. Otherwise, normal colonoscopy. RECOMMENDATIONS: 1. Await biopsy results. 2. A script for Levsin was given today to be used on a p.r.n. basis. Thank you for allowing me to participate in her care. Dagoberto Bonilla MD [facility]/[address] [address] PROCEDURE REPORT Name: BHANU MAS Room #: REG [facility].#: [id number] Admission: 11/27/20 Attend Phys: Dagoberto Sarmiento Discharge: Date of : 44 Report #: [id number] By: 0947 2250 Dagoberto Bonilla MD /nt
--- NOTE | ~2020-11-27 | P ---
[facility] [place] [address] PROCEDURE REPORT Name: BHANU MAS Room #: REG [facility].#: [id number] Admission: 11/27/20 Attend Phys: Dagoberto Sarmiento Discharge: Date of : 44 Report #: [id number] THIS REPORT FOR: cc: Omi Grigsby MD, Christopher B. MD McElhinney, Christian C. MD ~ DOC #: [id number] cc: MD Dagoberto Pickens MD DATE OF SERVICE: 11/27/2020 PROCEDURE PERFORMED: Upper endoscopy with esophageal dilation. HISTORY OF PRESENT ILLNESS: The patient is a 80-year-old female with a history of recurrent dysphagia. She underwent an upper endoscopy by myself last year for the same symptoms and performed dilation which was helpful. She also has a known large hiatal hernia. Plan is for upper endoscopy. DESCRIPTION OF PROCEDURE: The risks and benefits of the procedure were explained to the patient. Those risks including but not limited to bleeding, perforation and the risk of sedation. She understood these risks and gave informed consent. Sedation was given using propofol per Anesthesia. Next, using a standard Olympus upper endoscope, the scope was placed in the patient's mouth and advanced under direct vision through the esophagus, stomach and into the second portion of the duodenum. The esophagus, although somewhat tortuous, was otherwise normal. No evidence of stricture. The GE junction was normal. Upon entering the stomach, a large hiatal hernia was once again noted. Overall, the gastric mucosa was normal. The pylorus was normal and patent. The duodenal bulb, first and second portion were all normal. The scope was then brought back up into the patient's stomach and a Savary guidewire was inserted through the scope, leaving the guidewire in place as the scope was then withdrawn. Next, a 51-Lebanese Savary dilation of the esophagus was performed without difficulty. The wire and dilator removed. The scope was reintroduced into the patient's stomach. No evidence of mucosal tear was noted after dilation. The scope was then withdrawn and the procedure terminated. The patient tolerated the procedure well. IMPRESSION: 1. Large hiatal hernia. 2. Otherwise normal upper endoscopy. RECOMMENDATIONS: 1. Observe the patient post-dilation. 2. Plan is for colonoscopy next today. [address] [address] PROCEDURE REPORT Name: CHACEBHANU Room #: REG EMMA Aguayo#: [id number] Admission: 11/27/20 Attend Phys: Dagoberto Sarmiento Discharge: Date of : 44 Report #: [id number] Thank you for allowing me to participate in her care. Dagoberto Bonilla MD CCM/HEIDY/DEJA By: 0922 2244 Dagoberto Bonilla MD /refugio
--- NOTE | 2020-11-29 18:06 | PATH ---
[facility] [address] [place] [address] PATHOLOGY RPT PROCEDURE Name: CHACETALA Room #: REG EMMA Felder.#: [id number] Admission: 11/27/20 Date of : 44 Discharge: Report #: [id number] Path Case #: [id number] [facility] Accession Number: [id number] . 01 Material submitted: . colon - RANDOM COLON BX-R/O MICROSCOPIC COLITIS . 01 Clinical history: . R/O MIRCOSCOPIC COLITIS, DIVERTICULITIS, DIARRHEA . 02 Diagnosis: Large intestinal mucosa, random colon, rule out microscopic colitis, endoscopic biopsy: - One fragment with non-specific changes. - Remainder of fragments showing no significant diagnostic abnormalities. - Negative for microscopic colitis. - Negative for dysplasia or malignancy. LBQ 11/29/2020 1417 Local . 02 Comment: One fragment shows increased apoptotic bodies within the surface epithelium, and increased cellularity of the lamina propria including eosinophils within the infiltrate. Active cryptitis, or features of active colitis are not identified. Findings may be suggestive of medication/drug induced colitis, allergic reaction, bowel preparation, or a resolving insult. Please correlate clinically. (IUV/db; 11/29/2020) . 02 Electronically signed: . Jolene Villeda MD, Pathologist NPI- [id number] . 01 Gross description: . The specimen is received in formalin, labeled "Tala Mas, random colon biopsies". Received are multiple segments of pale glover tissue ranging in size from 0.3-0.7 cm in maximum dimensions. The specimen is submitted entirely in cassette A1. (CAA; 11/28/2020) QAC/QAC 11/28/2020 1916 Local . 02 Pathologist provided ICD-10: K57.92, R19.7 . 02 CPT . 825089 Specimen Comment: A courtesy copy of this report has been sent to [phone], [id number] [address] PATHOLOGY RPT PROCEDURE Name: TALA MAS Room #: REG [facility] Kishan.#: [id number] Admission: 11/27/20 Date of : 44 Discharge: Report #: [id number] Path Case #: [id number] Specimen Comment: [id number] Specimen Comment: Report sent to / DR REED Performed at: [address] [facility] [address], [place], [place] [id number] MD Calin Kumari MD Phone: [phone] Performed at: [address] [id number] MD Jolene Villeda MD Phone: [phone]
== END | disposition home or self-care (01) ==
LOC: GI 08:03
PROVIDERS: ATTEND Specialist
DX: R19.7 Diarrhea, unspecified (principal); R19.4 Change in bowel habit; K57.30 Diverticulosis of large intestine without perforation or abscess without bleeding; R13.10 Dysphagia, unspecified; K44.9 Diaphragmatic hernia without obstruction or gangrene; I11.0 Hypertensive heart disease with heart failure; I50.9 Heart failure, unspecified; E78.5 Hyperlipidemia, unspecified; I25.2 Old myocardial infarction; J44.9 Chronic obstructive pulmonary disease, unspecified; K21.9 Gastro-esophageal reflux disease without esophagitis; Z98.890 Other specified postprocedural states; Z79.899 Other long term (current) drug therapy; Z88.8 Allergy status to other drugs, medicaments and biological substances; Z88.2 Allergy status to sulfonamides
CPT/HCPCS: 62110; 62900

== ENCOUNTER → 2020-12-10 | Outpatient (CLI) | payer OTHER, BC | LOC: CAT 09:40 | PROVIDERS: ATTEND Internal Medicine | DX: R91.1 Solitary pulmonary nodule (principal) ==

== ENCOUNTER → 2020-12-25 | Outpatient (CLI) | payer OTHER, BC | LOC: SJCVC 12:47 | PROVIDERS: ATTEND Internal Medicine | DX: R94.31 Abnormal electrocardiogram [ECG] [EKG] (principal); I25.10 Atherosclerotic heart disease of native coronary artery without angina pectoris; E78.5 Hyperlipidemia, unspecified; K21.9 Gastro-esophageal reflux disease without esophagitis; J45.30 Mild persistent asthma, uncomplicated; I11.0 Hypertensive heart disease with heart failure; I50.9 Heart failure, unspecified; F10.10 Alcohol abuse, uncomplicated; Z77.22 Contact with and (suspected) exposure to environmental tobacco smoke (acute) (chronic); Z95.5 Presence of coronary angioplasty implant and graft; Z88.8 Allergy status to other drugs, medicaments and biological substances; Z88.2 Allergy status to sulfonamides; Z98.890 Other specified postprocedural states; Z79.82 Long term (current) use of aspirin; Z79.899 Other long term (current) drug therapy; Z82.49 Family history of ischemic heart disease and other diseases of the circulatory system ==

== ENCOUNTER → 2021-01-13 | Outpatient (CLI) | payer OTHER, BC | LOC: BC 12:57 | PROVIDERS: ATTEND Internal Medicine | DX: Z12.31 Encounter for screening mammogram for malignant neoplasm of breast (principal) ==

== ENCOUNTER → 2021-01-24 | Outpatient (CLI) | payer OTHER, BC | LOC: RAD 12:57 | PROVIDERS: ATTEND Internal Medicine | DX: R05 Cough (principal); M41.84 Other forms of scoliosis, thoracic region ==

== ENCOUNTER → 2021-03-17 | Outpatient (CLI) | payer OTHER, BC ==
[~2021-03-17] MED LIST changes: +DULCOLAX STOOL100 M1 PO; +FUROSEMIDE 20 M20 M1 PO
== END ==
LOC: SJCVC 13:56
PROVIDERS: ATTEND Internal Medicine
DX: R94.31 Abnormal electrocardiogram [ECG] [EKG] (principal); I25.10 Atherosclerotic heart disease of native coronary artery without angina pectoris; E78.5 Hyperlipidemia, unspecified; R55 Syncope and collapse; K21.9 Gastro-esophageal reflux disease without esophagitis; J45.30 Mild persistent asthma, uncomplicated; I11.0 Hypertensive heart disease with heart failure; I50.9 Heart failure, unspecified; E87.6 Hypokalemia; Z79.82 Long term (current) use of aspirin; Z79.899 Other long term (current) drug therapy; Z88.1 Allergy status to other antibiotic agents; Z88.8 Allergy status to other drugs, medicaments and biological substances; Z72.89 Other problems related to lifestyle

== ENCOUNTER → 2021-06-27 | Outpatient (CLI) | payer OTHER, BC | LOC: SJCVC 12:36 | PROVIDERS: ATTEND Internal Medicine | DX: R94.31 Abnormal electrocardiogram [ECG] [EKG] (principal); I25.10 Atherosclerotic heart disease of native coronary artery without angina pectoris; E78.5 Hyperlipidemia, unspecified; K21.9 Gastro-esophageal reflux disease without esophagitis; J45.30 Mild persistent asthma, uncomplicated; R55 Syncope and collapse; I11.0 Hypertensive heart disease with heart failure; I50.9 Heart failure, unspecified; Z95.5 Presence of coronary angioplasty implant and graft; Z82.49 Family history of ischemic heart disease and other diseases of the circulatory system; Z72.89 Other problems related to lifestyle; Z88.8 Allergy status to other drugs, medicaments and biological substances; Z77.22 Contact with and (suspected) exposure to environmental tobacco smoke (acute) (chronic); Z79.82 Long term (current) use of aspirin; Z79.899 Other long term (current) drug therapy ==

== ENCOUNTER → 2021-07-01 | Outpatient (CLI) | payer OTHER, BC | LOC: SJCVCIMAG 08:18 | PROVIDERS: ATTEND Internal Medicine | DX: I08.3 Combined rheumatic disorders of mitral, aortic and tricuspid valves (principal); I25.10 Atherosclerotic heart disease of native coronary artery without angina pectoris; I50.9 Heart failure, unspecified; I11.0 Hypertensive heart disease with heart failure; E78.5 Hyperlipidemia, unspecified; Z95.818 Presence of other cardiac implants and grafts; Z95.5 Presence of coronary angioplasty implant and graft; Z82.49 Family history of ischemic heart disease and other diseases of the circulatory system; Z72.89 Other problems related to lifestyle; Z79.82 Long term (current) use of aspirin; Z79.899 Other long term (current) drug therapy ==